=== PATIENT | female | born 1960 | race Caucasian/White ===

== ENCOUNTER 2019-11-01 15:44 | Observation (INO) | payer MEDICARE, MEDICAID, SELFPAY ==
[2019-11-01] VITALS (10 sets, daily range): BP systolic 112–134; BP diastolic 66–72; PULSE 78–110; RESP 15–22; TEMP 37.2–37.3; O2SAT 86–95; BMI 23.1
--- NOTE | ~2019-11-01 | US_ITS ---
EXAMINATION: US venous doppler [facility] DATE: 11/02/2019 11:38 INDICATION: Shortness of breath. TECHNIQUE: Grayscale ultrasound images without and with compression and Doppler ultrasound images of the bilateral lower extremity veins were obtained. COMPARISON: None. FINDINGS: The visualized portions of right common femoral vein, profunda (deep) femoral vein, femoral vein, pop liteal vein, peroneal veins, posterior tibial veins, and greater saphenous vein outflow are patent. The visualized portions of left common femoral vein, profunda femoral vein, femoral vein, popliteal v ein, peroneal veins, posterior tibial veins, and greater saphenous vein outflow are patent. IMPRESSION: 1. No deep venous thrombosis. Reviewed, dictated and finalized at location A. ARCHITECT
--- NOTE | ~2019-11-01 | XR_ITS ---
EXAMINATION: XR chest 2V EXAM DATE: 11/01/2019 16:56 INDICATION: Cough and shortness of breath. TECHNIQUE: Frontal and lateral projections of the chest obtained and reviewed. Comparison is made to prior examination from 07/07/2018. FINDINGS: There is moderate to severe chronic hyperinflation. Mild cardiomegaly. The main, central p ulmonary arteries are dilated which can indicate elevated pulmonary arterial pressure, pulmonary evan rial hypertension. No confluent consolidation, pneumothorax or pleural effusion suspected. There are bony degenerative changes. IMPRESSION: 1. Hyperinflation. 2. Cardiomegaly. Dilated pulmonary arteries. Reviewed, dictated and finalized at location A. DIR
--- NOTE | ~2019-11-01 | CT_ITS ---
EXAMINATION: CTA chest PE protocol DATE: 11/01/2019 18:30 INDICATION: Hypoxia. Shortness of breath. TECHNIQUE: Computed tomography (CT) pulmonary angiogram of the chest was performed with 100 mL Omnipa que-350 intravenous contrast. Additional 3D reconstructions utilizing coronal maximum intensity proje ction (MIP) were performed. Automated exposure control and iterative reconstruction technique were em ployed. The dose-length product was 167.62 mGy-cm. COMPARISON: None FINDINGS: Excellent contrast opacification of the pulmonary arteries. There is mild streak artifact from dense contrast in the superior vena cava and right atrium. Mild scattered respiratory motion artifact most prominent at the lung bases which decreases sensitivity in some of the smaller basilar subsegmental p ulmonary arteries. No pulmonary embolism. Mild emphysema. There is diffuse bronchial wall thickening throughout both lungs. Several scattered regions of mild tree-in-bud opacity throughout both lungs co nsistent with endobronchial spread of disease, most likely infectious bronchiolitis. Some bubbly mucu s is seen in the dependent aspect of the right mainstem bronchus. Mild basilar atelectasis at the inf erior periphery of the right middle and lower lobes. There are few scattered small bilateral calcifie d pulmonary nodules consistent with old granulomatous disease. No pulmonary edema, pleural effusion o r pneumothorax. Heart size is normal. No pericardial or pleural effusion. Thoracic aorta is normal in caliber with no dissection. Enlargement of the central pulmonary arteries consistent with pulmonary arterial hypertension. Mild bilateral hilar and subcarinal lymphadenopathy which is likely reactive. Mild thoracic dextroscoliosis with mild spondylosis. Severe lower cervical spondylosis. IMPRESSION: 1. No pulmonary embolism. 2. Diffuse bronchitis and scattered bilateral bronchiolitis. 3. Mild emphysema. Reviewed, dictated and finalized at location A. HANDISING INTERN
--- NOTE | 2019-11-01 16:33 | ED.GENADULT ---
HPI - General Adult General Chief complaint: Upper Respiratory Infection Stated complaint: trouble breathing,cough History of Present Illness HPI narrative: 59 y.o. longtime smoker has had a productive (green) cough, SOB, PND (green) for the past 2 - 3 weeks. Sore throat for the last day or two. Has been in bed almost all day the past 3 days. Temp of 100.1 today with associated chills. Is out of nebulizer solution and inhaler is empty. R.A., has not seen rivet bucker in over a year. No hx of DVT/PE, cancer, unusual leg swelling or leg pain. Related Data Home Medications Medication Instructions Recorded Confirmed hydrochlorothiazide 12.5 mg tablet 12.5 mg PO DAILY 08/30/19 11/01/19 metoprolol succinate 50 mg 50 mg PO DAILY 08/30/19 11/01/19 tablet,extended release 24 hr mirtazapine 45 mg tablet 45 mg PO HS 08/30/19 11/01/19 albuterol sulfate [ProAir HFA] 2 puff INHALATION Q4H PRN 11/01/19 11/01/19 naproxen 500 mg PO BID 11/01/19 11/01/19 prazosin 4 mg PO HS 11/01/19 11/01/19 Allergies Allergy/AdvReac Type Severity Reaction Status Date / Time No Known Allergies Allergy Verified 08/30/19 13:06 Review of Systems Constitutional: Constitutional: Reports as per HPI and Reports fatigue ENT: Reports system reviewed and no additional complaints, except as documented Cardiovascular: Cardiovascular: Denies chest pain and Denies rapid heart rate Respiratory: Respiratory: Reports no additional respiratory complaints Comments: no hemoptysis Gastrointestinal: Gastrointestinal: Denies abdominal pain, Reports diarrhea and Denies vomiting Comments: intermittent for several weeks. Genitourinary: Genitourinary: Reports hematuria (2.5 weeks ago, lasted one day. ), Denies nocturia and Denies dysuria Musculoskeletal: Comments: Denies myalgia RA pain in hands, right shoulder and hip Integumentary/Breasts: Skin/Breast: Denies rash Neurologic: Reports headache(s) (#8/10, bilateral, onset 2 days ago) Psychiatric: Comments: Denies current problems with depression or suicidal ideation. Endocrine: Endocrine: Denies polyuria Hematologic/Lymphatic: Hematologic/Lymphatic: Reports easy bruising (chronic) Comments: chronic lower extremity swelling [facility] Past Medical History Medical History (Updated 11/01/19 @ 19:03 by Cali Chavez MD) Depression Hypertension Rheumatoid arthritis Surgical History Surgical History (Updated 08/30/19 @ 13:10 by Rosa Turner) History of tubal ligation 1981 Hx of tonsillectomy Age 5 Family History Family History (Updated 08/30/19 @ 13:11 by Rosa Turner) Father Bowel cancer Mother , Age 72 Lung cancer Social History Social History (Updated 11/01/19 @ 18:34 by Cali Chavez MD) Smoking packs per day: 0.5 Smoking cigarettes per day: 1 Years smoked: 44 Smoking pack-years: 2 Smoking status: Current every day smoker Tobacco type: cigarettes Substance use: current Substance use type: marijuana Additional occupation/education comments: Disabled to due Rheumatoid Arthritis. . 1 Child. Gender identity (if verbalized by the patient): Female Exam Const: General: no acute distress Orientation/consciousness: patient oriented x3 Other: No retraction, no tripod positioning or pursed lips. HENMT: Head: normal to inspection Face and sinus: sinus tenderness maxillary (left) Mouth: Yes Normal oral and palatal mucosa present and Yes moist mucous membranes abnormal Neck: Neck: no lymphadenopathy Chest: Chest palpation & inspection: normal inspection of the chest Resp: Effort & Inspection: normal respiratory effort, able to speak in complete sentences, no audible wheezes, Actively coughing and no respiratory distress Auscultation: wheezes, diminished lung sounds (bases) and no bronchial breath sounds Cardio: Jugular venous distension: no JVD Rate: regular rate Rhythm: regular rhythm Heart sounds: S1 brett
[2019-11-01] MEDS: IPRATROPIUM 0.5 MG/ALBUTEROL SULFATE 2.5 MG AMPUL.NEB 3 ML INHALATION ×2 (16:43→23:41)
[2019-11-01 16:48] LABS: Basophils Absolute Auto 0.02 K/mm3 (0.00-0.10); Basophils Percent Auto 0.3 % (0.0-1.0); Eosinophils Absolute Auto 0.13 K/mm3 (0.02-0.50); Eosinophils Percent Auto 1.8 % (1.0-6.0); Hematocrit 36.7 % (35.0-49.0); Hemoglobin 11.3 g/dL (12.0-15.0); Immature Granulocyte Absolute 0.04 K/mm3 (0.00-0.00); Immature Granulocyte Percent A 0.6 % (0.0-0.0); Lymphocytes Absolute Auto 0.69 K/mm3 (1.10-4.50); Lymphocytes Percent Auto 9.8 % (18.0-42.0); Mean Corpuscular HGB Conc 30.8 g/dL (32.0-36.0); Mean Corpuscular Hemoglobin 28.8 pg (27.0-31.0); Mean Corpuscular Volume 93.4 fL (78.0-102.0); Mean Platelet Volume 9.5 fl (9.2-11.8); Monocytes Absolute Auto 0.42 K/mm3 (0.10-0.90); Monocytes Percent Auto 5.9 % (2.0-11.0); Neutrophils Absolute Auto 5.8 K/mm3 (1.7-7.2); Neutrophils Percent Auto 81.6 % (50.0-70.0); Platelet Count Result 232 K/mm3 (150-420); Red Blood Count 3.93 M/mm3 (4.20-5.40); Red Cell Distribution Width 14.4 % (11.6-14.4); White Blood Count 7.1 K/mm3 (4.8-10.8)
[2019-11-01 17:04] LABS: Alanine Aminotransferase 15 U/L (14-59); Albumin Level 2.7 g/dL (3.4-5.0); Alkaline Phosphatase 55 U/L (46-116); Anion Gap 9.6 mmol/L (7-16); Aspartate Amino Transferase 11 U/L (15-37); Bilirubin,Total 0.1 mg/dL (0.00-1.00); Blood Urea Nitrogen 16 mg/dL (7-18); Calcium 9.3 mg/dL (8.5-10.1); Carbon Dioxide 34 mmol/L (21-32); Chloride 104 mmol/L (98-108); Estimated CRCL calculation 56 ml/min; Estimated Glomerular Filt Rate > 60; Glucose 91 mg/dL (70-99); Osmolality Calculated 297 mOsm/kg (285-295); Potassium 4.6 mmol/L (3.5-5.1); Sodium 143 mmol/L (136-145); Total Protein 6.3 g/dL (6.4-8.2)
--- NOTE | 2019-11-01 17:06 | ECG_ITS ---
Measurements Intervals [place] Rate: 86 P: 32 RI: 132 QRS: 65 QRSD: 86 T: 51 QT: 363 QTc: 435 Interpretive Statements SINUS RHYTHM ST ELEVATION IN ANTEROLAT/INF LEADS- PROBABLY EARLY REPOLARIZATION BORDERLINE ECG Electronically Signed On 11-02-2019 8:02:04 DIRECTOR ONCOLOGY by Kj Turk D.O.
--- NOTE | 2019-11-01 17:10 | PC.NURSE ---
PT O2 SATURATION 83% ON ROOM AIR. 2L NC PLACED ON, PT NOW 90%
[2019-11-01 17:26] LABS: BNP 43.7 pg/mL (0-100)
[2019-11-01 17:31] LABS: Troponin I 0.02 ng/mL (0.00-0.056)
[2019-11-01 17:39] LABS: D Dimer 1.28 mg/L (0.19-0.50)
[2019-11-01] MEDS: LORAZEPAM 0.5 MG TABLET PO (17:52)
[2019-11-01] MEDS: predniSONE 20 MG TABLET 60 MG PO (18:33)
[2019-11-01] MEDS: SODIUM CHLORIDE 0.9% IV 1,000 ML 100 ML IV CONT (20:11)
[2019-11-01] MEDS: MIRTAZAPINE 15 MG TABLET 45 MG PO (20:51)
--- NOTE | 2019-11-01 23:00 | ADMGEN ---
This patient, Stefani Gonzalez, was admitted to 2nd Floor Room 226-2. Patient oriented to hospital policies and general routines including ID bracelet, bed and alarms, visiting hours, pain management, procedures, bathroom and other care routines, personal items, smoking policy, room service/diet, and visiting hours. Valuables list has clothing, coat, glasses, cell phone and sociology faculty member. Information on how to activate the Rapid Response Team has been discussed. Patient is encouraged to report perceived risks to care and to ask questions if they do not understand what they are told or what they should do.
[2019-11-02] VITALS (16 sets, daily range): BP systolic 117–131; BP diastolic 75–82; PULSE 74–112; RESP 16–22; TEMP 36.2–36.6; O2SAT 71–96
--- NOTE | 2019-11-02 00:20 | PC.NURSE ---
Patient falling asleep while nurse trying to educate on pursed lip breathing. Duoneb started. Patient's SpO2 during Duoneb 90% and dropped back down to 78% after neb was finished. Patient awake then and doing pursed lip breathing and SpO2 only came up to 80%. O2 increased to 4 lpm/nc and SpO2 remained @ 80% O2 changed to mask @ 4 lpm and SpO2 increased to 94% after several minutes.
[2019-11-02] MEDS: SODIUM CHLORIDE 0.9% IV 1,000 ML 100 ML IV CONT (05:52)
[2019-11-02] MEDS: IPRATROPIUM 0.5 MG/ALBUTEROL SULFATE 2.5 MG AMPUL.NEB 3 ML INHALATION ×2 (05:59→12:41)
--- NOTE | 2019-11-02 08:00 | PC.NURSE ---
No distress at rest, loose productive cough at times
--- NOTE | 2019-11-02 08:00 | PCDIET ---
NO DISTRESS AT REST, OXYGEN IS ON AT THIS TIME AT 4L NC, COUGH CONTINUES, LOOSE AND PRODUCTIVE AT TIMES
--- NOTE | 2019-11-02 09:00 | PC.NURSE ---
No distress at rest, call light inreach, oxygen on at 4L NC
--- NOTE | 2019-11-02 09:00 | PCDIET ---
NO DISTRESS AT REST, OXYGEN ON AT 4L NC AT THIS TIME, ABLE TO CONVERSE WITH NO SOB, FLUIDS INFUSING
[2019-11-02] MEDS: ACETAMINOPHEN 325 MG TABLET 650 MG PO (09:10)
[2019-11-02] MEDS: METOPROLOL SUCCINATE EXT REL 50 MG TABCR PO (09:13)
[2019-11-02] MEDS: predniSONE 20 MG TABLET 60 MG PO (09:14)
[2019-11-02] MEDS: NAPROXEN 250 MG TABLET 500 MG PO (09:14)
[2019-11-02] MEDS: hydroCHLOROthiazide 12.5 MG CAPSULE PO (09:17)
[2019-11-02] MEDS: ENOXAPARIN 40 MG/0.4 ML SYRINGE SUB-Q (09:18)
[2019-11-02 09:43] LABS: Hematocrit 34.9 % (35.0-49.0); Hemoglobin 10.7 g/dL (12.0-15.0); Mean Corpuscular HGB Conc 30.7 g/dL (32.0-36.0); Mean Corpuscular Hemoglobin 28.9 pg (27.0-31.0); Mean Corpuscular Volume 94.3 fL (78.0-102.0); Mean Platelet Volume 9.8 fl (9.2-11.8); Platelet Count Result 238 K/mm3 (150-420); Red Cell Distribution Width 14.6 % (11.6-14.4); White Blood Count 6.7 K/mm3 (4.8-10.8)
--- NOTE | 2019-11-02 10:00 | PCDIET ---
RESTING IN BED, USING BSC WITHOUT ASSISTANCE, DENIES PAIN AT THIS TIME, NO SOB AT REST, COUGH AT TIMES PRODUCTIVE AT TIMES
[2019-11-02 10:07] LABS: D Dimer 1.03 mg/L (0.19-0.50)
[2019-11-02 10:15] LABS: Anion Gap 8.6 mmol/L (7-16); Blood Urea Nitrogen 15 mg/dL (7-18); Calcium 9.6 mg/dL (8.5-10.1); Carbon Dioxide 34 mmol/L (21-32); Chloride 105 mmol/L (98-108); Estimated CRCL calculation 55 ml/min; Estimated Glomerular Filt Rate > 60; Glucose 131 mg/dL (70-99); Osmolality Calculated 298 mOsm/kg (285-295); Potassium 4.6 mmol/L (3.5-5.1); Sodium 143 mmol/L (136-145); Thyroid Stimulating Hormone 0.24 uIU/mL (0.36-3.74)
[2019-11-02 10:17] LABS: Phosphorus 3.5 mg/dL (2.6-4.7)
[2019-11-02 10:18] LABS: Magnesium 1.6 mg/dL (1.8-2.4); Troponin I < 0.02 ng/mL (0.00-0.056)
[2019-11-02 10:34] LABS: Lactic Acid 1.3 mmol/L (0.4-2.0)
[2019-11-02] MEDS: SALMET XINAFT/FLUTIC PROPIN 250 MCG/50 MCG INH CAP 1 PUFF INHALATION (10:40)
[2019-11-02] MEDS: methylPREDNISolone SOD SUCC 40 MG VIAL 20 MG IV PUSH (10:41)
--- NOTE | 2019-11-02 10:48 | PM.IMHP ---
H&P: HPI History of Present Illness Chief complaint: trouble breathing,cough Narrative: Stefani Gonzalez is a 59 year old female admitted yesterday for SOB, COPD exacerbation with Asthma, Infective Bronchitis, Emphysema, Lymphadenopathy, and history of fevers at home. She is a longtime smoker with a productive (green sputum) cough for the past 2 - 3 weeks. Sore throat for the last day or two. Has been in bed almost all day the past 3 days. Temp of 100.1 today with associated chills. Stefani is feeling better today, but still not at her baseline and not feeling well enough to go home this morning, wants to discuss this afternoon. Started on Spiriva daily, Advair daily, DuoNeb treatments Q6 hrs, and ProAir/Ventalin Rescue inhaler PRN. Received 80mg Prednisone today, 60mg planned for tomorrow. She is currently on and off 2-4 L O2 NC, depending on her activity level. She was not using O2 at home and does not have any O2 supply at home. She stated that she was having fevers at home and at her ED admission, but no fevers at documented in vitals. WBCs are wnl. CT scan is showing Infective bilateral Bronchitis, emphysema, and reactive lymphadenopathy. Ordered Influenza A and B swab test. With her SOB, Troponins checked and found WNL x 2, and will repeat EKG today. EKG yesterday showed some mild to moderate ST elevation in Leads II, III. Denies chest pain, jaw pain, shoulder pain, arm/hand tingling or numbness. Ordered Home O2 study for this afternoon. Required 3 L O2 NC with ambulation, activity, and required 1 L O2 NC while at rest. Will send her home on O2 if needed and with a Nebulizer to continue her Neb treatments. She will be discharged with COPD that is at a chronic stable state. Review of Systems Review of Systems: All systems reviewed & are unremarkable except as noted in HPI and below Constitutional: Constitutional: Reports as per HPI, Reports body ache(s), Reports chills, Reports fatigue, Reports headache(s) (#8/10, bilateral, onset 2 days ago), Reports lethargy and Reports weakness Eyes: Eyes: Reports as per HPI ENT: Reports system reviewed and no additional complaints, except as documented, Reports as per HPI, Reports Normal hearing present, Reports headache(s) (#8/10, bilateral, onset 2 days ago) and Reports nasal congestion Cardiovascular: Cardiovascular: Reports as per HPI, Denies chest pain, Denies rapid heart rate, Denies pedal edema, Reports leg edema, Denies lightheadedness and Denies palpitations Respiratory: Respiratory: Reports as per HPI, Reports chest congestion, Reports cough, Denies hemoptysis, Reports dyspnea, Reports dyspnea on exertion and Reports wheezing Gastrointestinal: Gastrointestinal: Reports as per HPI, Denies abdominal pain, Denies melena, Denies hematochezia, Denies constipation, Denies heartburn, Reports diarrhea, Denies nausea, Denies vomiting and Denies hematemesis Genitourinary: Genitourinary: Reports as per HPI, Denies hematuria (2.5 weeks ago, lasted one day. ), Denies nocturia, Denies dysuria and Denies urinary incontinence Musculoskeletal: Musculoskeletal: Denies no additional musculoskeletal complaints, Reports as per HPI and Reports stiffness Integumentary/Breasts: Skin/Breast: Reports system reviewed and no additional complaints, except as docu, Reports as per HPI, Reports dry skin and Denies rash Neurologic: Reports as per HPI, Denies confusion, Denies vertigo, Reports headache(s) (#8/10, bilateral, onset 2 days ago) and Denies numbness Psychiatric: Psychiatric: Reports as per HPI, Reports anxiety (high level of anxiety, uses nictoine daily with cigarette smoking. ), Denies confusion, Reports depression, Denies homicidal ideation and Denies suicidal ideation Comments: HYPERACTIVE, hyperemotional Endocrine: Endocrine: Reports as per HPI, Reports excessive sweating, Reports fatigue and Denies polyuria Hematologic/Lymphatic: Hematologic/Lymphatic: Reports easy bruising (chronic) [facility]
--- NOTE | 2019-11-02 10:53 | ECG_ITS ---
Measurements Intervals [place] Rate: P: LA: QRS: QRSD: T: QT: QTc: Interpretive Statements SINUS RHYTHM DELAYED PRECORDIAL R/S TRANSITION BORDERLINE ST-T WAVE ABNORMALITY- ANTERIOR LEADS BORDERLINE ECG Electronically Signed On 11-02-2019 14:14:30 HOT BOX SPOTTER by Kj Turk D.O.
--- NOTE | 2019-11-02 11:00 | PC.NURSE ---
Resting with HOB elevated, no distress noted, denies needs, oxygen on at 4L NC, wants to take a walk, advised when venous dopplar is completed we can walk and check oxygen level with activity
[2019-11-02] MEDS: MAGNESIUM SULF 4 GM/WATER100ML 4 GM/100 ML BAG IVPB (11:09)
--- NOTE | 2019-11-02 12:00 | PC.NURSE ---
eating lunch, no distress, oxygen on 4L NC
--- NOTE | 2019-11-02 13:21 | PC.NURSE ---
Up in anna with SBA, walked around outside of nurses station, no distress noted, denies sob, oxygen off during walk and noted oxygen level 88-90% on room air
--- NOTE | 2019-11-02 14:00 | PC.NURSE ---
On room air, no distress noted,
--- NOTE | 2019-11-02 14:02 | PCDIET ---
resting in bed on room air, denies sob at this time
[2019-11-02 14:14] LABS: Influenza Control Valid (Valid)
--- NOTE | 2019-11-02 15:19 | HOMEO2EVAL ---
Home Oxygen Evaluation RC: Home Oxygen (O2) Evaluation Start: 11/02/19 13:50 Freq: ONCE Status: Active Protocol: RPE Activity Type Activity Date Activity User E-Sign Co-Sign Detail Recorded Client Recorded Date Recorded By Document 11/02/19 14:30 TANJA [id number] 11/02/19 15:19 TANJA Document 11/02/19 14:33 TANJA [id number] 11/02/19 15:19 TANJA Document 11/02/19 14:35 TANJA [id number] 11/02/19 15:19 TANJA Document 11/02/19 14:40 TANJA [id number] 11/02/19 15:19 TANJA Document 11/02/19 14:45 TANJA [id number] 11/02/19 15:19 TANJA 11/02/19 11/02/19 11/02/19 14:30 14:33 14:35 Home O2 Evaluation Test Phase Resting Resting Resting Oxygen Delivery Room Air Nasal Cannula Nasal Cannula Oxygen Flow Rate (L/min) 1 2 Pulse Oximetry (90-100 %) 87 L 89 L 93 Pulse Rate (60-100 beats/min) 80 80 78 Activity Tolerance Rating of Perceived Dyspnea (PD) +2 Mild, Some Difficulty, Noticeable to the Observer Rate of Perceived Exertion (PE) 6 Very, very light Ambulation Distance (feet) Home Oxygen Evaluation Comments Sp02 at rest on Resting at 1 SP02 at rest on room air = 87% lpm = SP02 89%. 2 lpm = 93%. Will increase will begin walk to 2 lpm at on 2 lpm. rest. Treatment Charges O2 Evaluation 11/02/19 11/02/19 14:40 14:45 Home O2 Evaluation Test Phase Exercise Exercise Oxygen Delivery Nasal Cannula Nasal Cannula Oxygen Flow Rate (L/min) 2 3 Pulse Oximetry (90-100 %) 89 L 93 Pulse Rate (60-100 beats/min) 85 85 Activity Tolerance Good Excellent Rating of Perceived Dyspnea (PD) +2 Mild, Some +2 Mild, Some Difficulty, Difficulty, Noticeable to Noticeable to the Observer the Observer Rate of Perceived Exertion (PE) 9 Very light 9 Very light Ambulation Distance (feet) 65 400 Home Oxygen Evaluation Comments SP02 on 2 lpm Sp02 maintained with exercise at 93% during dropped to 89% exerise on 3 after walking lpm oxygen. 65 feet. Will increase oxygen to 3 lpm. Treatment Charges
--- NOTE | 2019-11-02 15:22 | HOMEO2EVAL ---
Home Oxygen Evaluation RC: Home Oxygen (O2) Evaluation Start: 11/02/19 13:50 Freq: ONCE Status: Active Protocol: RPE Activity Type Activity Date Activity User E-Sign Co-Sign Detail Recorded Client Recorded Date Recorded By Document 11/02/19 14:30 TANJA [id number] 11/02/19 15:19 TANJA Document 11/02/19 14:33 TANJA [id number] 11/02/19 15:19 TANJA Document 11/02/19 14:35 TANJA [id number] 11/02/19 15:19 TANJA Document 11/02/19 14:40 TANJA [id number] 11/02/19 15:19 TANJA Document 11/02/19 14:45 TANJA [id number] 11/02/19 15:19 TANJA 11/02/19 11/02/19 11/02/19 14:30 14:33 14:35 Home O2 Evaluation Test Phase Resting Resting Resting Oxygen Delivery Room Air Nasal Cannula Nasal Cannula Oxygen Flow Rate (L/min) 1 2 Pulse Oximetry (90-100 %) 87 L 89 L 93 Pulse Rate (60-100 beats/min) 80 80 78 Activity Tolerance Rating of Perceived Dyspnea (PD) +2 Mild, Some Difficulty, Noticeable to the Observer Rate of Perceived Exertion (PE) 6 Very, very light Ambulation Distance (feet) Home Oxygen Evaluation Comments Sp02 at rest on Resting at 1 SP02 at rest on room air = 87% lpm = SP02 89%. 2 lpm = 93%. Will increase will begin walk to 2 lpm at on 2 lpm. rest. Treatment Charges O2 Evaluation 11/02/19 11/02/19 14:40 14:45 Home O2 Evaluation Test Phase Exercise Exercise Oxygen Delivery Nasal Cannula Nasal Cannula Oxygen Flow Rate (L/min) 2 3 Pulse Oximetry (90-100 %) 89 L 93 Pulse Rate (60-100 beats/min) 85 85 Activity Tolerance Good Excellent Rating of Perceived Dyspnea (PD) +2 Mild, Some +2 Mild, Some Difficulty, Difficulty, Noticeable to Noticeable to the Observer the Observer Rate of Perceived Exertion (PE) 9 Very light 9 Very light Ambulation Distance (feet) 65 400 Home Oxygen Evaluation Comments SP02 on 2 lpm Sp02 maintained with exercise at 93% during dropped to 89% exerise on 3 after walking lpm oxygen. 65 feet. Will increase oxygen to 3 lpm. Treatment Charges
[2019-11-02] MEDS: NICOTINE (*PBKC) 14 MG PATCH 1 PATCH TRANSDERM (15:35)
--- NOTE | 2019-11-02 16:02 | PC.NURSE ---
pt found smoking in bathroom, pt apologizes and states i only took 2 drags i swear then i flushed it , pt reminded of dangers of smoking in the room with 02 and also of the fact that we are a smoke-free campus
--- NOTE | 2019-11-02 16:50 | PM.DS ---
DS: Diagnosis Admitting Diagnosis Admitting Diagnosis: Secondary pulmonary arterial hypertension Discharge Diagnosis (1) Bronchiolitis, acute: Onset Date: ~11/01/19 Code(s): J21.9 - Acute bronchiolitis, unspecified Status: Acute Assessment and Plan: Received IV solumedrol and discharged on oral prednisone taper. Started on Q4-6 hour Duo Neb treatments and continued at discharge. Ordered Home O2 and home Nebulizer machine. She is to continue using her Incentive Spirometer at home. She is to Follow up with PCP and Socket Puller in 3-14 days. (2) Pulmonary artery hypertension: Onset Date: ~11/01/19 Code(s): I27.21 - Secondary pulmonary arterial hypertension Status: Acute Assessment and Plan: Will need to see PCP regarding this finding on her CT scan. ORdered her an outpatient ECHO to get scheduled and completed and discussed with her PCP and/or news operations manager. Continue to control BP and HR. Use inhalers and nebulizers to reduce lung/heart work load. Stop smoking. (3) Emphysema lung: Onset Date: ~11/01/19 Code(s): J43.9 - Emphysema, unspecified Status: Acute Assessment and Plan: Will need to see PCP and Socket Puller regarding this finding on her CT scan. Needs to get PFTs on outpatient basis and discuss them with Pulonologist. Avoid triggers: pollen, dust, smoke, perfumes. Use inhalers and nebulizers/ bronchodilators. Stop smoking. (4) COPD with acute exacerbation: Onset Date: ~11/01/19 Code(s): J44.1 - Chronic obstructive pulmonary disease with (acute) exacerbation Status: Acute Assessment and Plan: Will need to see PCP and Socket Puller regarding this finding on her CT scan. Needs to get PFTs on outpatient basis and discuss them with Pulonologist. Avoid triggers: pollen, dust, smoke, perfumes. Use inhalers and nebulizers/ bronchodilators. Stop smoking. Complete her Steroid taper. DS: Summary Time Spent with Patient Time attestation: Total time spent providing and/or coordinating discharge services:>60 minutes Exam Const: General: comfortable and no acute distress; No in distress or confusion Orientation/consciousness: patient oriented x3 and No confusion Other: No retraction, no tripod positioning or pursed lips. HENMT: Head: normal to inspection General nose exam: no epistaxis Face and sinus: sinus tenderness maxillary (left) Mouth: Yes Normal oral and palatal mucosa present, Yes moist mucous membranes abnormal, Yes dry mucous membranes and Yes Abnormal oral and palatal mucosa present Eyes: General: appearance normal, both eyes and all related structures Pupils: Equal, round and reactive pupils present Neck: Neck: no lymphadenopathy and No no JVD Lymphatic: lymphadenopathy Chest: Chest palpation & inspection: normal inspection of the chest Resp: Effort & Inspection: normal respiratory effort, able to speak in complete sentences, no audible wheezes, Actively coughing, labored (only with exertion/ activity), no nasal flaring, no respiratory distress, uses accessory muscles (with exertion/activity) and symmetric chest movement Auscultation: clear to auscultation bilaterally, no crackles, no rales, no rhonchi, no wheezes, diminished lung sounds (bases) and no bronchial breath sounds Cardio: Jugular venous distension: no JVD Rate: regular rate, not bradycardic and not tachycardic Rhythm: regular rhythm and regular rhythm Heart sounds: S1 normal heart sound present, S2 normal heart sound present, no gallops and no murmurs GI: Inspection: normal to inspection and non-distended Auscultation: normal bowel sounds : General: Yes no CVA tenderness Back/Spine/Pelvis: Back: no CVA tenderness Skin: General skin exam: normal color, no rashes or lesions noted and no erythema Rashes: no rashes noted Wounds: no wounds Neuro: General: patient oriented x3, gait normal and No confusion Cranial nerves: Yes Equal,
--- NOTE | 2019-11-04 12:16 | PC.NURSE ---
Discharge call Back [phone] Patient stated I have a friend whos been taking care of me. Going to see the dr on Thursday. I understood all the discharge instructions in writing and talked about. I have the folder I was sent home with and I looked at it a couple times since I've been home.
[2019-11-05 10:53] LABS: Vitamin D 25 Hydroxy 30 ng/mL (30-100)
== END 2019-11-02 17:25 | disposition home or self-care (01) ==
LOC: CHSED 19:06 → CHS2ND 19:24
PROVIDERS: Nurse Practitioner; Admitting Provider Family Medicine; Emergency Provider Family Medicine; Visit Provider Family Medicine
DX: J20.9 Acute bronchitis, unspecified (principal); J21.9 Acute bronchiolitis, unspecified; J43.9 Emphysema, unspecified; I27.20 Pulmonary hypertension, unspecified; M06.9 Rheumatoid arthritis, unspecified; R59.0 Localized enlarged lymph nodes; F17.210 Nicotine dependence, cigarettes, uncomplicated; R06.02 Shortness of breath; F32.9 Major depressive disorder, single episode, unspecified; R61 Generalized hyperhidrosis; Z79.899 Other long term (current) drug therapy
CPT/HCPCS: 36415; 71046; 71275; 80048; 80053; 82306; 83605; 83735; 83880; 84100; 84443; 84484; 85025; 85027; 85380; 87040; 87070; 87077; 87205; 87804; 93005; 93970; 94618; 94640; 96361; 96365; 96366; 96367; 96372; 96375; 99284; 99285; A9270; G0378; J0696; J1650; J2920; J3475; J7030; J7512; Q9965

== ENCOUNTER 2020-02-13 14:48 | Outpatient (CLI) | payer MEDICARE, MEDICAID, SELFPAY ==
--- NOTE | ~2020-02-13 | MR_ITS ---
EXAMINATION: MR cervical spine wo con EXAM DATE: 02/13/2020 15:11 INDICATION: Neck pain. TECHNIQUE: Multi-sequential, multiplanar MR images of the cervical spine were obtained without contra st. Axial T2, axial T2 MERGE sequence. Sagittal T1, T2, T2 fat saturation images also obtained. Th ere is no prior study for comparison. FINDINGS: Moderate to severe disc disease at C4-5 and 5-6, moderate at C6-7. Spinal cord is being co mpressed at these 3 levels, but there is no cord edema, no acute cord compression. The vertebral bodi es are aligned in the AP dimension. Cervicomedullary junction is normal in appearance. There are no s uspicious marrow signal abnormalities. Paraspinal soft tissue is unremarkable. There is an 8 mm nodu le in the thyroid isthmus. Level by level evaluation: C2-C3: Disc does not extend beyond the endplate margin. Uncovertebral joint arthropathy: Mild bilateral. Facet joint arthropathy: Moderate left, mild to moderate right. Neural foraminal stenosis: Mild to moderate left. Central canal stenosis: No stenosis. C3-C4: Disc does not extend beyond the endplate margin. Uncovertebral joint arthropathy: Mild bilateral. Facet joint arthropathy: Moderate left, mild to moderate right. Neural foraminal stenosis: Mild to moderate left, no right. Central canal stenosis: No stenosis. C4-C5: There is a mild to moderate diffuse disc bulge. Uncovertebral joint arthropathy: Moderate. Facet joint arthropathy: Mild to moderate bilateral. Neural foraminal stenosis: Moderate to severe left, moderate right. Central canal stenosis: Mild to moderate . Central canal measures 6 mm in mid sagittal AP diameter . C5-C6: There is a moderate diffuse disc bulge. Uncovertebral joint arthropathy: Moderate. Facet joint arthropathy: Mild to moderate. Neural foraminal stenosis: Moderate bilateral, left greater than right. Central canal stenosis: Mild to moderate . Central canal measures 6 mm in mid sagittal AP diameter . C6-C7: There is a moderate to large diffuse disc bulge. Also some migration both cephalad and inferio r to the disc level. Uncovertebral joint arthropathy: Moderate. Facet joint arthropathy: Mild. Neural foraminal stenosis: Moderate left, mild to moderate right. Central canal stenosis: Moderate . Central canal measures 5 mm in mid sagittal AP diameter . C7-T1: Disc does not extend beyond the endplate margin. Uncovertebral joint arthropathy: Mild left. Facet joint arthropathy: Mild to moderate bilateral. Neural foraminal stenosis: Mild right. Central canal stenosis: No stenosis. IMPRESSION: 1. Chronic lower cervical cord compressions, no edema. 2. Moderate to severe cervical spondylosis as detailed above. Reviewed, dictated and finalized at location A.
== END 2020-02-13 14:49 | disposition home or self-care (01) ==
PROVIDERS: PCP Family Medicine; Visit Provider Internal Medicine Rheumatology
DX: M54.2 Cervicalgia (principal); Z78.0 Asymptomatic menopausal state; M47.812 Spondylosis without myelopathy or radiculopathy, cervical region; G95.20 Unspecified cord compression
CPT/HCPCS: 72141

== ENCOUNTER 2020-02-15 13:11 | Outpatient (CLI) | payer MEDICARE, MEDICAID, SELFPAY ==
--- NOTE | ~2020-02-15 | DEXA_ITS ---
Bone Density Report Name: Stefani Gonzalez Age: 59 Sex: Female Ethnicity: White Date of : 1960 Indication: postmenopausal; height loss; asthma or emphysema; rheumatoid arthritis; Referring Provider: YAO SAUNDERS Study: Bone densitometry was performed. Exam Date: February 15, 2020 Accession number: [id number] Bone Density: Region BMD T-score Z-score Classification AP Spine (L1, L3, L4) 0.757 -2.7 -1.3 Osteoporosis Femoral Neck (Left) 0.554 -2.7 -1.4 Osteoporosis Total Hip (Left) 0.691 -2.1 -1.1 Osteopenia Total Hip Bilateral Avg 0.689 -2.1 -1.2 Osteopenia Femoral Neck (Right) 0.529 -2.9 -1.6 Osteoporosis Total Hip (Right) 0.686 -2.1 -1.2 Osteopenia World Health Organization criteria for BMD impression classify patients as: Normal (T-score at or above -1.0), Osteopenia (T-score between -1.0 and -2.5), or Osteoporosis (T-score at or below -2.5). 10-year Fracture Risk: FRAX not reported because: Some T-score for Spine Total or Hip Total or Femoral Neck at or below -2.5 Clinical Information Provided by Patient: Has rheumatoid arthritis Has the following medical conditions: Asthma or Emphysema Patient maximum height was 66 Menopause Age: 48 No regular weight bearing exercise Drinks caffeinated beverages Onset of menses at age 15 Number of children 1 Impression: The patient has osteoporosis, based on the Right Femoral Neck T-score. Discussion: INCREASED RISK OF FRACTURE. BONE DENSITY IS UNDESIRABLY LOW AT ONE OR MORE SKELETAL SITES, CONSISTENT WITH POSTMENOPAUSAL OSTEOPOROSIS. This patient's lowest T-score meets the World Health Organization's (WHO) criteria for osteoporosis at one or more sites (T-score -2.5 or below). In untreated patients, the risk of osteoporotic fracture increases approximately two-fold for each 1.0 SD decrease in T-score. Low bone density is not the only risk factor for fracture; also consider factors such as patient's age, frailty or poor health, risk of falling, risk of injury, previous osteoporotic fracture, family history of osteoporosis, cigarette smoking, low body weight, etc. Not everyone with low bone mineral density has osteoporosis; osteomalacia and other metabolic bone disorders should also be considered. Patients who have osteoporosis should be evaluated for specific diseases and conditions (secondary causes) that may cause or contribute to bone loss. The [place] Association [employer] Clinical Endocrinologists (AACE) and National Osteoporosis Foundation (NOF) recommend pharmacologic intervention for all postmenopausal women whose T-score is in this range. The patient should follow a healthful lifestyle (good nutrition with adequate calcium and vitamin D, and appropriate weight-bearing exercise). Follow-Up: Consider a repeat BMD and Vertebral Fracture Assessment (VFA) exam in 2 years or lennie
== END 2020-02-15 13:12 | disposition home or self-care (01) ==
PROVIDERS: PCP Family Medicine; Visit Provider Internal Medicine Rheumatology
DX: Z78.0 Asymptomatic menopausal state (principal); M85.89 Other specified disorders of bone density and structure, multiple sites; M81.0 Age-related osteoporosis without current pathological fracture
CPT/HCPCS: 77080

== ENCOUNTER 2020-04-01 10:53 | Emergency (ER) | payer MEDICARE, MEDICAID, SELFPAY ==
[2020-04-01 11:10] VITALS: BP 197/115; PULSE 92; RESP 20; TEMP 36.8; O2SAT 93
[2020-04-01 11:15] LABS: Add Urine Microscopic? YES; Appearance Urine Clear (Clear); Bilirubin Urine Negative (Negative); Blood Urine Negative (Negative); Color Urine Yellow (Yellow); Glucose Urine UA Negative (Negative); Ketones Urine Negative (Negative); Leukocyte Esterase Ur Negative LEU/UL (Negative); Nitrate Urine Negative (Negative); Protein Urine Trace (Negative); Urobilinogen Urine 0.2 mg/dL (0.2-1.0); pH Urine 7.5 (5.0-8.0)
[2020-04-01 11:20] LABS: Bacteria Urine None seen /hpf; Mucus Urine None seen /lpf; RBC Urine None seen /hpf (0-2); Squamous Epithelial Cell Urine Few /hpf (Few); WBC Urine None seen /hpf (0-3)
--- NOTE | 2020-04-01 11:39 | ED.BACK ---
HPI - Back Pain/Injury General Chief Complaint: Urogenital-Female Stated Complaint: Kidney infection Source: patient Mode of arrival: ambulatory Limitations: no limitations History of Present Illness HPI Narrative: Patient has had right sided back pain for the last 4 days. No associated fever , chills, vomiting or urinary symptoms. MD elicited complaint: back pain and back injury (none) Pertinent past history: arthritis (rheumatoid arthritis) Onset (ago): day(s) (4) Timing: constant Severity: moderate Similar Symptoms Previously: Yes Quality: aching Location: lumbar spine Radiation: none Exacerbating factors: movement Relieving factors: none Associated symptoms: denies other symptoms Related Data Home Medications Medication Instructions Recorded Confirmed hydrochlorothiazide 12.5 mg tablet 12.5 mg PO DAILY 08/30/19 04/01/20 metoprolol succinate 50 mg 50 mg PO DAILY 08/30/19 04/01/20 tablet,extended release 24 hr mirtazapine 45 mg tablet 45 mg PO HS 08/30/19 04/01/20 Allergies Allergy/AdvReac Type Severity Reaction Status Date / Time No Known Allergies Allergy Verified 01/31/20 10:54 Review of Systems Review of Systems: All systems reviewed & are unremarkable except as noted in HPI and below PMFSH Past Medical History Medical History COPD (chronic obstructive pulmonary disease) Depression Hypertension Pulmonary artery hypertension (~11/01/19) Rheumatoid arthritis Tobacco abuse Surgical History Surgical History History of tubal ligation 1982 Hx of tonsillectomy Age 5 Family History Family History Father Bowel cancer Mother , Age 72 Lung cancer Social History Social History Smoking packs per day: 0.5 Smoking cigarettes per day: 10.0 Years smoked: 44 Smoking pack-years: 22.00 Smoking status: Current every day smoker Tobacco type: cigarettes Second hand tobacco smoke exposure: Yes Alcohol intake: former Substance use: never Substance use type: does not use Additional occupation/education comments: Disabled to due Rheumatoid Arthritis. . 1 Child. Gender identity (if verbalized by the patient): Female Spiritual care concerns: No Agree to blood products: Yes Exam Const: General: no acute distress and alert Orientation/consciousness: patient oriented x3 HENMT: Head: normal to inspection Resp: Effort & Inspection: normal respiratory effort Auscultation: clear to auscultation bilaterally Cardio: Rate: regular rate Rhythm: regular rhythm GI: GI Palp: Yes Soft to palpation and No Tenderness to palpation present (GI) Back/Spine/Pelvis: Thoracic/Lumbar Spine: thoracic and lumbar spine normal to inspection, straight leg raise negative bilaterally and paraspinal muscle tenderness (right side) Extrem: General: normal to inspection Psych: Mental Status: mental status grossly normal Affect: Anxious affect present Course Course Emergency Course: Patient is aware of normal urinalysis. Will give her analgesia with toradol Vital Signs Vital signs: Vital Signs Temperature 36.8 C 04/01/20 11:10 Pulse Rate 92 04/01/20 11:10 Respiratory Rate 20 04/01/20 11:10 Blood Pressure 197/115 H 04/01/20 11:10 Pulse Oximetry 93 04/01/20 11:10 Temperature 36.8 C 04/01/20 11:10 Pulse Rate 92 04/01/20 11:10 Respiratory Rate 20 04/01/20 11:10 Blood Pressure 197/115 H 04/01/20 11:10 Pulse Oximetry 93 04/01/20 11:10 MDM - Back Pain/Injury Differential Diagnosis Differential diagnosis: Likely lumbar radiculopathy, strain of lumbar region and pyelonephritis Medical Records Attestation: I reviewed the patient's medical records. Lab Data Attestation: I reviewed the patient's lab results. Labs: Lab Results
[2020-04-01] MEDS: KETOROLAC (*BKC) 60 MG/2 ML VIAL IM (11:58)
== END 2020-04-01 12:02 | disposition home or self-care (01) ==
PROVIDERS: Emergency Provider Emergency Medicine; PCP Family Medicine
DX: M54.9 Dorsalgia, unspecified (principal); F17.200 Nicotine dependence, unspecified, uncomplicated; J44.9 Chronic obstructive pulmonary disease, unspecified; I10 Essential (primary) hypertension
CPT/HCPCS: 81001; 96372; 99283; J1885

== ENCOUNTER 2020-04-11 12:20 | Outpatient (CLI) | payer MEDICARE, MEDICAID, SELFPAY ==
--- NOTE | ~2020-04-11 | XR_ITS ---
XR lumbar spine 2-3V DATE: 04/11/2020 13:54 INDICATION: Low back pain, shooting down right leg TECHNIQUE: AP, lateral, coned lateral lumbosacral views COMPARISON: None FINDINGS: Diffuse osteopenia. There is moderate rotatory levoscoliosis of the lower thoracic and lumbar spine. There is degenerative disc disease involving primarily the mid lumbar area, most prominent at L2-3. No fracture or bone destruction or spondylolisthesis. The sacroiliac joints are intact. IMPRESSION: Moderate rotatory levoscoliosis Multilevel degenerative disc disease Reviewed, dictated and finalized at location A.
== END 2020-04-11 12:21 | disposition home or self-care (01) ==
LOC: CHSIMG 12:23
PROVIDERS: PCP Family Medicine; Visit Provider Family Medicine
DX: M54.5 Low back pain (principal)
CPT/HCPCS: 72100

== ENCOUNTER 2020-04-16 14:49 | Outpatient (RCR) | payer MEDICARE, MEDICAID, SELFPAY ==
--- NOTE | 2020-04-25 14:24 | PCPTNOTE ---
04/25/2020- pt no showed for appointment on both 04/23/2020 and today 04/25/2020. There is no answer on phone, and no option to leave a vm. .
--- NOTE | 2020-06-12 16:28 | PCPTNOTE ---
06/12/20 - patient has not been to therapy in several months. as of this date, patient will be DC'd from skilled PT services, and all progress towards goals will be taken from patients most recent evaluation/note. CHERRY
== END 2020-04-16 15:00 | disposition home or self-care (01) ==
LOC: CHSPT 14:49
PROVIDERS: PCP Family Medicine; Visit Provider Family Medicine
DX: M54.5 Low back pain (principal)
CPT/HCPCS: 97014; 97110; 97161; G0283

== ENCOUNTER 2020-06-23 01:15 | Outpatient (CLI) | payer MEDICARE, MEDICAID, SELFPAY ==
[2020-06-23 18:13] LABS: SARS-CoV-2 RNA PCR Negative
== END 2020-06-23 01:16 | disposition home or self-care (01) ==
LOC: ANHCOVIDDT 01:16
PROVIDERS: PCP Family Medicine; Visit Provider Surgery
DX: Z01.812 Encounter for preprocedural laboratory examination (principal); Z20.828 Contact with and (suspected) exposure to other viral communicable diseases
CPT/HCPCS: 87635; C9803; U0003

== ENCOUNTER 2020-06-26 01:20 | Day surgery (SDC) | payer MEDICARE, MEDICAID, SELFPAY ==
[2020-06-14 09:14] VITALS: BMI 22.6
[2020-06-26] MEDS: LACTATED RINGERS 1,000 ML 150 ML IV CONT (09:33)
[2020-06-26 09:37] VITALS: BP 135/65; PULSE 80; RESP 20; TEMP 36.6; O2SAT 90
--- NOTE | 2020-06-26 09:46 | WPDANESEPPF ---
Anes - Initial Pre Proc Eval Procedure: Operation Date: 06/26/20 10:00 Proposed Procedures p Screening Colonoscopy - Faustino Worrell DO Date/Time: 06/26/20 09:46 Surgeon: Faustino Worrell DO Pre Op Diagnosis: Neoplasm Screening Patient Data Age: 60 Gender: F Height: 1.63 m Weight: 22.6 kg Last Vital Signs Temp 36.6 C 06/26/20 09:37 Pulse 80 06/26/20 09:37 Resp 20 06/26/20 09:37 BP 135/65 06/26/20 09:37 Pulse Ox 90 06/26/20 09:37 Allergies Allergy/AdvReac Type Severity Reaction Status Date / Time No Known Allergies Allergy Verified 06/26/20 09:35 Home Medications Medication Instructions Recorded Confirmed Type hydrochlorothiazide 12.5 mg tablet 12.5 mg PO DAILY 08/30/19 06/14/20 History metoprolol succinate 50 mg 50 mg PO DAILY 08/30/19 06/14/20 History tablet,extended release 24 hr mirtazapine 45 mg tablet 45 mg PO HS #90 tablet 04/17/20 06/14/20 Rx albuterol sulfate 90 mcg/actuation See Rx Instructions .ROUTE 05/25/20 06/14/20 Rx aerosol inhaler .COMPLEX #8.5 inhaler tiotropium bromide 18 mcg capsule 1 cap INHALATION QAM 90 Days #90 05/25/20 06/14/20 Rx with inhalation device inhalation inhalational spacing device #1 each 05/28/20 Rx duloxetine 30 mg capsule,delayed 30 mg PO BID #180 cap 05/30/20 06/14/20 Rx release varenicline 0.5 mg (11)-1 mg (42) See Rx Instructions PO PER PKG DIR 05/30/20 06/14/20 Rx tablets in a dose pack #53 each trazodone 100 mg tablet 200 mg PO .Bedtime #60 tablet 06/07/20 06/14/20 Rx folic acid 1 mg PO DAILY 06/14/20 06/14/20 History ipratropium-albuterol 3 ml INHALATION Q4-6H PRN 06/14/20 06/14/20 History methotrexate sodium 20 mg PO WEEKLY 06/14/20 06/14/20 History Patient hx anesthesia problems: none Family hx anesthesia problems: none PMFSH Social History Social History Smoking packs per day: 0.5 Smoking cigarettes per day: 10.0 Years smoked: 44 Smoking pack-years: 22.00 Smoking status: Current every day smoker Tobacco type: cigarettes Second hand tobacco smoke exposure: Yes Alcohol intake: former Substance use: never Substance use type: does not use Additional occupation/education comments: Disabled to due Rheumatoid Arthritis. . 1 Child. Gender identity (if verbalized by the patient): Female Spiritual care concerns: No Agree to blood products: Yes Anes - Eval Final PreProcedure Day of Procedure 06/26/20 09:46 Patient weight: normal Heart: regular rate and rhythm Lungs: clear to auscultation and normal air movement Airway: Mallampati scale class II Neurological: alert and oriented Last oral intake: >/= 8 hours ASA classification: III Emergent: no Anesthetic plan: proceed Anesthesia type and monitoring: general GIVS Informed Consent: The patient's anesthetic plan and its attendant risks and benefits were discussed with the patient/family/POA. Questions were solicited and answers provided to the satisfaction of the patient/family/POA.
--- NOTE | 2020-06-26 10:05 | PM.IMHP ---
H&P: HPI History of Present Illness Date/Time: 06/26/20 10:05 Chief complaint: Neoplasm Screening Narrative: Stefani Gonzalez is a 60 year old female who presents for colonoscopy. Her last one was 10 years ago. She had a few polyps removed at that time. No known fam hx colon cancer. Denies hematochezia or melena. Review of Systems Review of Systems: All systems reviewed & are unremarkable except as noted in HPI and below Constitutional: Constitutional: Denies chills, Denies fever(s), Denies headache(s) and Denies weight loss Eyes: Eyes: Denies change in vision ENT: Denies dizziness, Denies headache(s), Denies neck mass and Denies throat swelling Cardiovascular: Cardiovascular: Denies chest pain, Denies lightheadedness and Denies dyspnea Respiratory: Respiratory: Denies cough, Denies dyspnea and Denies wheezing Gastrointestinal: Gastrointestinal: Denies abdominal pain, Denies change in bowel habits, Denies nausea and Denies vomiting Genitourinary: Genitourinary: Denies hematuria and Denies dysuria Musculoskeletal: Musculoskeletal: Reports as per HPI Integumentary/Breasts: Skin/Breast: Reports as per HPI Neurologic: Denies dizziness and Denies headache(s) Allergic/Immunologic: Allergic/Immunologic: Denies throat swelling and Denies wheezing PMF Past Medical History Medical History COPD (chronic obstructive pulmonary disease) Depression Hypertension Pulmonary artery hypertension (~11/01/19) Rheumatoid arthritis Tobacco abuse Surgical History Surgical History History of tubal ligation 1982 Hx of tonsillectomy Age 5 Family History Family History Father Bowel cancer Mother , Age 72 Lung cancer Social History Social History Smoking packs per day: 0.5 Smoking cigarettes per day: 10.0 Years smoked: 44 Smoking pack-years: 22.00 Smoking status: Current every day smoker Tobacco type: cigarettes Second hand tobacco smoke exposure: Yes Alcohol intake: former Substance use: never Substance use type: does not use Additional occupation/education comments: Disabled to due Rheumatoid Arthritis. . 1 Child. Gender identity (if verbalized by the patient): Female Spiritual care concerns: No Agree to blood products: Yes Meds Home Medications and Allergies Home Medications Medication Instructions Recorded Confirmed Type hydrochlorothiazide 12.5 mg tablet 12.5 mg PO DAILY 08/30/19 06/14/20 History metoprolol succinate 50 mg 50 mg PO DAILY 08/30/19 06/14/20 History tablet,extended release 24 hr mirtazapine 45 mg tablet 45 mg PO HS #90 tablet 04/17/20 06/14/20 Rx albuterol sulfate 90 mcg/actuation See Rx Instructions .ROUTE 05/25/20 06/14/20 Rx aerosol inhaler .COMPLEX #8.5 inhaler tiotropium bromide 18 mcg capsule 1 cap INHALATION QAM 90 Days #90 05/25/20 06/14/20 Rx with inhalation device inhalation inhalational spacing device #1 each 05/28/20 Rx duloxetine 30 mg capsule,delayed 30 mg PO BID #180 cap 05/30/20 06/14/20 Rx release varenicline 0.5 mg (11)-1 mg (42) See Rx Instructions PO PER PKG DIR 05/30/20 06/14/20 Rx tablets in a dose pack #53 each trazodone 100 mg tablet 200 mg PO .Bedtime #60 tablet 06/07/20 06/14/20 Rx folic acid 1 mg PO DAILY 06/14/20 06/14/20 History ipratropium-albuterol 3 ml INHALATION Q4-6H PRN 06/14/20 06/14/20 History methotrexate sodium 20 mg PO WEEKLY 06/14/20 06/14/20 History Allergies Allergy/AdvReac Type Severity Reaction Status Date / Time No Known Allergies Allergy Verified 06/26/20 09:35 Vital Signs Vital Signs - 24 hr 06/26/20 09:37 Temperature 36.6 C Pulse Rate 80 Respiratory Rate 20 Blood Pressure 135/65 Pulse Oximetry 90 Exam Const: General:
[2020-06-26 10:40] VITALS: BP 98/58; PULSE 82; RESP 20; O2SAT 91
[2020-06-26 10:50] VITALS: BP 101/58; PULSE 63; RESP 20; O2SAT 97
[2020-06-26 11:00] VITALS: BP 114/69; PULSE 78; RESP 20; O2SAT 97
== END 2020-06-26 11:17 | disposition home or self-care (01) ==
PROVIDERS: PCP Family Medicine; Visit Provider Surgery
PROC: 0DJD8ZZ Inspection of Lower Intestinal Tract, Via Natural or Artificial Opening Endoscopic (ICD-10-PCS; CPT 45378; principal; 2020-06-26 10:00)
DX: Z12.11 Encounter for screening for malignant neoplasm of colon (principal); K57.30 Diverticulosis of large intestine without perforation or abscess without bleeding; K63.89 Other specified diseases of intestine; Z80.0 Family history of malignant neoplasm of digestive organs; I10 Essential (primary) hypertension; J44.9 Chronic obstructive pulmonary disease, unspecified; F32.9 Major depressive disorder, single episode, unspecified; M06.9 Rheumatoid arthritis, unspecified; I27.20 Pulmonary hypertension, unspecified; F17.210 Nicotine dependence, cigarettes, uncomplicated; Z79.51 Long term (current) use of inhaled steroids; Z79.899 Other long term (current) drug therapy
CPT/HCPCS: G0105; J2704; J7120

== ENCOUNTER 2020-06-27 13:17 | Outpatient (NON) | payer MEDICARE, MEDICAID, SELFPAY | END 2021-01-01 15:34 | disposition home or self-care (01) | PROVIDERS: Visit Provider Nurse Practitioner Family | DX: Z12.4 Encounter for screening for malignant neoplasm of cervix (principal); Z13.89 Encounter for screening for other disorder | CPT/HCPCS: 87491; 87591; 87624; 87625; 88141; 88175; G0145 ==

== ENCOUNTER 2020-07-04 09:23 | Outpatient (CLI) | payer MEDICARE, MEDICAID, SELFPAY ==
--- NOTE | ~2020-07-04 | MM_ITS ---
EXAMINATION: MM screening frankie BI w mohinder HISTORY: Screening mammogram TECHNIQUE: Craniocaudal and mediolateral oblique 3-D tomosynthesis images were obtained and synthetic 2-D images were generated. CAD analysis was submitted and interpreted. COMPARISON: No prior mammogram is available for comparison at this institution. BREAST PARENCHYMAL COMPOSITION: The breasts are heterogeneously dense, which may obscure small masses . FINDINGS: Bilateral possible breast masses are suggested. Bilateral diagnostic mammography is recomme nded, with ultrasound if required. IMPRESSION: 1. Possible bilateral breast masses 2. Bilateral diagnostic mammography is recommended, with ultrasound if required BI-RADS Category 0: Incomplete: Needs additional imaging evaluation. Reviewed, dictated and finalized at location A.
== END 2020-07-04 09:24 | disposition home or self-care (01) ==
PROVIDERS: PCP Nurse Practitioner Family; Visit Provider Nurse Practitioner Family
DX: Z12.31 Encounter for screening mammogram for malignant neoplasm of breast (principal)
CPT/HCPCS: 77063; 77067

== ENCOUNTER 2020-07-05 08:39 | Outpatient (CLI) | payer MEDICARE, MEDICAID, SELFPAY ==
--- NOTE | ~2020-07-05 | MMUS_ITS ---
EXAMINATION: MM diagnostic frankie BI w mohinder, US breast BI complete HISTORY: Bilateral possible breast masses noted on 07/04/2020 screening mammogram examination TECHNIQUE: Additional 3-D tomosynthesis images of both breasts were performed and synthetic 2-D image s were generated. CAD analysis was submitted and interpreted. High resolution bilateral complete [facility]ma[facility] st ultrasound was performed. COMPARISON: 07/04/2020 bilateral digital screening mammogram FINDINGS: MAMMOGRAPHIC FINDINGS: Occasional bilateral benign calcifications. Bilateral fibronodular asymmetry. The heterogeneous dense stroma may obscure masses. Bilateral complete breast ultrasound examination was performed. ULTRASOUND: Right breast: 1:00 2 cm from nipple: Parallel circumscribed 4 x 2 x 4.1 mm sonolucency, without internal vascularit y or suspicious shadowing, consistent with benign process. 2:00 5 cm from nipple: Parallel circumscribed 1.2 x 2.6 mm sonolucency with through transmission, con sistent with simple cyst. 3:00 near nipple: 2.4 x 2.9 mm sonolucency without internal vascularity or posterior features; the ma rgins are mildly irregular. Six-month follow-up ultrasound examination is recommended. 10:00 3 cm from nipple: 1.6 x 3.3 mm benign-appearing lymph node and 1.6 x 3.5 mm benign-appearing ly mph node Left breast: 12:00 2 cm from nipple: 1.3 x 1.9 mm circumscribed hypoechoic lesion 9:00 3 cm from nipple: 1.2 x 2.0 mm sonolucency with through transmission, consistent with small cyst 11:00 3 cm from nipple: Parallel circumscribed 1.5 x 4.5 x 2.6 mm hypoechoic area without internal va scularity or suspicious shadowing. IMPRESSION: 1. Probably benign 2.4 mm mildly irregular sonolucency at right breast 3:00 position near nipple 2. 6 month follow-up targeted right breast ultrasound at 3:00 near the nipple is recommended BI-RADS category 3, probably benign findings. Reviewed, dictated and finalized at location A. IMPRESSION: 1. Probably benign 2.4 mm mildly irregular sonolucency at right breast 3:00 pos ition near nipple 2. 6 month follow-up targeted right breast ultrasound at 3:00 near the nipple i s recommended BI-RADS category 3, probably benign findings.
== END 2020-07-05 08:40 | disposition home or self-care (01) ==
LOC: CHSIMG 08:40
PROVIDERS: PCP Nurse Practitioner Family; Visit Provider Nurse Practitioner Family
DX: R92.8 Other abnormal and inconclusive findings on diagnostic imaging of breast (principal)
CPT/HCPCS: 76641; 77062; 77066; G0279

== ENCOUNTER 2020-08-30 07:56 | Outpatient (CLI) | payer MEDICARE, MEDICAID, SELFPAY ==
--- NOTE | ~2020-08-30 | CT_ITS ---
EXAMINATION: CT abdomen pelvis wo/w con DATE: 08/30/2020 09:26 INDICATION: Gross hematuria. Nausea and vomiting. TECHNIQUE: Computed tomography (CT) of the abdomen and pelvis was performed without and with intraven ous contrast using a total of 130 mL Omnipaque-350 intravenous contrast with a double-bolus technique for simultaneous opacification of the renal parenchyma and renal collecting system. Automated exposu re control and iterative reconstruction technique were employed. The dose-length product was 822.82 m Gy-cm. COMPARISON: Chest CT 11/01/2019 FINDINGS: The visualized portions of the lung bases demonstrate mild bronchiectasis. There are tree-in-bud opac ities in the lower lobes, consistent with bronchiolectasis. Calcified right lung nodules are consiste nt with old granulomatous disease. No pleural effusion. The heart size is normal. There are coronary artery calcifications. There is a small pericardial effusion. The liver, gallbladder, spleen, pancrea s, and adrenal glands are normal. There are cysts in the kidneys measuring up to 11 mm on the right. There is no urolithiasis. Right ureter is well opacified and is normal. There is a 15 x 8 mm frond-li ke mass in left renal pelvis. The bladder is normal. There are no dilated loops of bowel. The appendi x is normal. There are no pathologically enlarged lymph nodes. There is no free intraperitoneal fluid . There is lumbar levoscoliosis and mild spondylosis. IMPRESSION: 1. 16 x 8 mm mass in left renal pelvis suspicious for urothelial carcinoma. Ureteroscopy is recommend ed. Reviewed, dictated and finalized at location B. L ADMINISTRATOR IMPRESSION: 1. 16 x 8 mm mass in left renal pelvis suspicious for urothelial carcinoma. Ure teroscopy is recommended.
[2020-08-30 08:17] LABS: Estimated Glomerular Filt Rate 59
== END 2020-08-30 07:57 | disposition home or self-care (01) ==
PROVIDERS: PCP Family Medicine; Visit Provider Family Medicine
DX: K92.0 Hematemesis (principal); R31.9 Hematuria, unspecified; R87.619 Unspecified abnormal cytological findings in specimens from cervix uteri
CPT/HCPCS: 74178; Q9965

== ENCOUNTER 2021-01-08 13:19 | Outpatient (CLI) | payer MEDICARE, MEDICAID, SELFPAY ==
--- NOTE | ~2021-01-08 | US_ITS ---
EXAMINATION: US breast RT limited HISTORY: Six-month follow-up for probably benign right breast mass TECHNIQUE: Limited ultrasound is performed at the 3:00 location in the right breast. COMPARISON: 07/05/2020 FINDINGS: There is a 5 mm x 3 mm oval, circumscribed, parallel, hypoechoic mass with no posterior fea tures or internal vascularity at the 3:00 location near the nipple. No suspicious interval change is identified. IMPRESSION: Probably benign right breast mass. Follow-up targeted right breast ultrasound six months is recommend ed. BI-RADS category 3, probably benign findings. Reviewed, dictated and finalized at location A. IMPRESSION: Probably benign right breast mass. Follow-up targeted right breast ultrasound s ix months is recommended. BI-RADS category 3, probably benign findings.
== END 2021-01-08 13:20 | disposition home or self-care (01) ==
PROVIDERS: PCP Family Medicine; Visit Provider Nurse Practitioner Family
DX: R92.8 Other abnormal and inconclusive findings on diagnostic imaging of breast (principal)
CPT/HCPCS: 76642

== ENCOUNTER 2021-08-23 11:10 | Outpatient (CLI) | payer MEDICARE, MEDICAID, SELFPAY ==
[2021-08-23 11:25] LABS: Basophils Absolute Auto 0.04 K/mm3 (0.00-0.10); Basophils Percent Auto 0.7 % (0.0-1.0); Eosinophils Absolute Auto 0.21 K/mm3 (0.02-0.50); Eosinophils Percent Auto 3.5 % (1.0-6.0); Hematocrit 40.4 % (35.0-49.0); Immature Granulocyte Absolute 0.01 K/mm3 (0.00-0.00); Immature Granulocyte Percent A 0.2 % (0.0-0.0); Lymphocytes Absolute Auto 0.64 K/mm3 (1.10-4.50); Lymphocytes Percent Auto 10.6 % (18.0-42.0); Mean Corpuscular HGB Conc 29.7 g/dL (32.0-36.0); Mean Corpuscular Hemoglobin 28.9 pg (27.0-31.0); Mean Corpuscular Volume 97.3 fL (78.0-102.0); Mean Platelet Volume 10.3 fl (9.2-11.8); Monocytes Absolute Auto 0.56 K/mm3 (0.10-0.90); Monocytes Percent Auto 9.3 % (2.0-11.0); Neutrophils Absolute Auto 4.6 K/mm3 (1.7-7.2); Neutrophils Percent Auto 75.7 % (50.0-70.0); Platelet Count Result 246 K/mm3 (150-420); Red Blood Count 4.15 M/mm3 (4.20-5.40)
[2021-08-23 12:36] LABS: Alanine Aminotransferase 26 U/L (14-59); Albumin Level 3.1 g/dL (3.4-5.0); Alkaline Phosphatase 90 U/L (46-116); Anion Gap 4 mmol/L (8-16); Aspartate Amino Transferase 11 U/L (15-37); Bilirubin,Total 0.2 mg/dL (0.00-1.00); Blood Urea Nitrogen 23 mg/dL (7-18); Calcium 9.6 mg/dL (8.5-10.1); Carbon Dioxide 34 mmol/L (21-32); Chloride 104 mmol/L (98-108); Cholesterol 161 mg/dL (0-200); Estimated Glomerular Filt Rate 47; Free T4 Free Thyroxine 0.84 ng/dL (0.76-1.46); Glucose 85 mg/dL (70-99); HDL Direct 48 mg/dL (40-60); LDL Cholesterol Calculated 101 mg/dL (<130); Osmolality Calculated 296 mOsm/kg (285-295); Potassium 4.5 mmol/L (3.5-5.1); Sodium 142 mmol/L (136-145); Total Protein 6.5 g/dL (6.4-8.2); Triglycerides 60 mg/dL (0-150)
[2021-08-23 13:11] LABS: Thyroid Stimulating Hormone Reflex 1.52 u/IU/mL (0.36-3.74)
[2021-08-26 20:56] LABS: T4 Thyroxine 5.5 mcg/dL (5.1-11.9)
== END 2021-08-23 11:11 | disposition home or self-care (01) ==
LOC: CHSLAB 11:13
PROVIDERS: PCP Family Medicine; Visit Provider Family Medicine
DX: R79.89 Other specified abnormal findings of blood chemistry (principal); I10 Essential (primary) hypertension; Z13.220 Encounter for screening for lipoid disorders; Z13.6 Encounter for screening for cardiovascular disorders
CPT/HCPCS: 36415; 80053; 80061; 84436; 84439; 84443; 85025

== ENCOUNTER 2021-09-27 08:58 | Outpatient (CLI) | payer MEDICARE, MEDICAID, SELFPAY ==
--- NOTE | ~2021-09-27 | US_ITS ---
US breast RT limited 09/27/2021 09:15 Indication: Follow-up right breast mass Procedure: High-resolution Limited right breast ultrasound Comparison: 01/08/2021 Findings: At 3:00 near the nipple there is an oval circumscribed hypoechoic mass with no posterior fe atures or internal vascularity measuring 6 x 4 x 2 mm, without significant change from prior examinat ion. Impression: 1: Stable 6 mm right breast mass at 3:00 near the nipple, likely complicated cyst. BI-RADS CATEGORY 3-PROBABLY BENIGN FINDING RECOMMENDATION: Six-month follow-up bilateral mammogram and limited right breast ultrasound. Reviewed, dictated and finalized at location A. [employer] Impression: 1: Stable 6 mm right breast mass at 3:00 near the nipple, likely complicated cy st. BI-RADS CATEGORY 3-PROBABLY BENIGN FINDING RECOMMENDATION: Six-month follow-up bilateral mammogram and limited right breas t ultrasound.
== END 2021-09-27 08:59 | disposition home or self-care (01) ==
LOC: CHSIMG 08:59
PROVIDERS: PCP Family Medicine; Visit Provider Family Medicine
DX: R92.8 Other abnormal and inconclusive findings on diagnostic imaging of breast (principal)
CPT/HCPCS: 76642

== ENCOUNTER 2021-10-05 08:19 | Outpatient (CLI) | payer MEDICARE, MEDICAID, SELFPAY ==
--- NOTE | ~2021-10-05 | MR_ITS ---
EXAMINATION: MR brain/brain stem wo con DATE: 10/05/2021 09:17 INDICATION: Headache, unspecified. TECHNIQUE: Magnetic resonance imaging (MRI) of the brain and brainstem was performed without intraven ous contrast. Sequences included sagittal and axial T1-weighted FSE, axial diffusion-weighted FS EPI, axial T2*-weighted GRE, axial T2-weighted FLAIR Propeller, and axial T2-weighted Propeller. Apparent diffusion coefficient (ADC) maps were created. COMPARISON: None. FINDINGS: There are scattered areas of nonspecific increased T2-weighted signal intensity in the cere bral white matter. There is no intracranial hemorrhage, acute infarction, or abnormal intracranial ma ss lesion. The ventricles are normal in size. The orbits are normal. There is mild mucosal thickening in the ethmoid sinuses. There are bilateral otomastoid effusions. IMPRESSION: 1. Moderate nonspecific cerebral white matter disease, which likely represents chronic small vessel i schemic disease. 2. Bilateral otomastoid effusions. Reviewed, dictated and finalized at location A. TING CONTRACT MAN IMPRESSION: 1. Moderate nonspecific cerebral white matter disease, which likely represents chronic small vessel ischemic disease. 2. Bilateral otomastoid effusions.
== END 2021-10-05 08:20 | disposition home or self-care (01) ==
LOC: CHSIMG 08:21
PROVIDERS: PCP Family Medicine; Visit Provider Family Medicine
DX: R51.9 Headache, unspecified (principal)
CPT/HCPCS: 70551

== ENCOUNTER 2022-10-21 14:43 | Outpatient (CLI) | payer MEDICARE, MEDICAID, SELFPAY ==
--- NOTE | ~2022-10-21 | XR_ITS ---
Clinical Indication: Swelling, shortness of breath PA and lateral views of the chest: Comparison: 11/01/2019 Findings: There are probable minimal bilateral pleural effusions with bibasilar chronic interstitial disease and/or emphysema change. Cardiomediastinal silhouette is within normal limits. Bones and sof t tissues are unremarkable. Impression: Probable minimal bilateral pleural effusions. Emphysema and/or bibasilar chronic interstitial disease. Reviewed, dictated and finalized at location M. UT SEPARATOR Impression: Probable minimal bilateral pleural effusions. Emphysema and/or bibasilar chronic interstitial disease.
[2022-10-21 15:06] LABS: Hematocrit 40.6 % (35.0-49.0); Hemoglobin 11.9 g/dL (12.0-15.0); Mean Corpuscular HGB Conc 29.3 g/dL (32.0-36.0); Mean Corpuscular Hemoglobin 27.4 pg (27.0-31.0); Mean Corpuscular Volume 93.3 fL (78.0-102.0); Mean Platelet Volume 10.4 fl (9.2-11.8); Platelet Count Result 270 K/mm3 (150-420); Red Blood Count 4.35 M/mm3 (4.20-5.40); Red Cell Distribution Width 18.7 % (11.6-14.4); White Blood Count 10.1 K/mm3 (4.8-10.8)
--- NOTE | 2022-10-21 15:29 | ECG_ITS ---
Measurements Intervals [place] Rate: 93 P: 71 WA: 151 QRS: 106 QRSD: 90 T: 52 QT: 348 QTc: 435 Interpretive Statements SINUS RHYTHM CONSIDER LIMB LEAD REVERSSAL BORDERLINE R WAVE PROGRESSION, ANTERIOR LEADS BORDERLINE ECG COMPARED TO ECG 11/01/2019 17:19:15 NO SIGNIFICANT CHANGES Electronically Signed On 10-21-2022 16:31:36 [employer] by Kj Turk D.O.
[2022-10-21 15:41] LABS: Alanine Aminotransferase 19 U/L (14-59); Albumin Level 2.7 g/dL (3.4-5.0); Alkaline Phosphatase 64 U/L (46-116); Anion Gap 2 mmol/L (8-16); Aspartate Amino Transferase 19 U/L (15-37); Bilirubin,Total 0.3 mg/dL (0.00-1.00); Blood Urea Nitrogen 24 mg/dL (7-18); Calcium 9.3 mg/dL (8.5-10.1); Carbon Dioxide 35 mmol/L (21-32); Chloride 101 mmol/L (98-108); Estimated Glomerular Filt Rate 60; Glucose 95 mg/dL (70-99); NT Pro B Type Natriuretic Pept 3061 pg/mL (0-125); Osmolality Calculated 290 mOsm/kg (285-295); Potassium 4.5 mmol/L (3.5-5.1); Sodium 138 mmol/L (136-145); Total Protein 5.8 g/dL (6.4-8.2)
[2022-10-21 15:44] LABS: Influenza A QL RT-PCR Negative (Negative); Influenza B QL RT-PCR Negative (Negative); SARS-CoV-2 RNA PCR Negative (Negative)
== END 2022-10-21 14:44 | disposition home or self-care (01) ==
PROVIDERS: PCP Family Medicine; Visit Provider Family Medicine
DX: I10 Essential (primary) hypertension (principal); R60.1 Generalized edema; R91.8 Other nonspecific abnormal finding of lung field
CPT/HCPCS: 36415; 71046; 80053; 83880; 85027; 87636; 93005

== ENCOUNTER 2022-11-05 14:24 | Emergency (ER) | payer MEDICARE, MEDICAID, SELFPAY ==
[2022-11-05] VITALS (28 sets, daily range): BP systolic 117–141; BP diastolic 68–85; PULSE 68–96; RESP 15–25; TEMP 36.8–36.9; O2SAT 92–100
--- NOTE | ~2022-11-05 | XR_ITS ---
EXAMINATION: XR chest 1V portable DATE: 11/05/2022 15:03 INDICATION: Shortness of breath. TECHNIQUE: A single frontal view of the chest was obtained. COMPARISON: Chest 2 views 10/21/2022, CT abdomen and pelvis 08/30/2020 FINDINGS: There are mild airspace opacities in the lower lung zones. There is a small right pleural e ffusion. No pneumothorax. Cardiomegaly is noted. IMPRESSION: 1. Mild airspace opacities in the lower lung zones, consistent with atelectasis/scarring versus mild pulmonary edema versus pneumonia. 2. Cardiomegaly. Reviewed, dictated and finalized at location A. [place] SALES MANAGER IMPRESSION: 1. Mild airspace opacities in the lower lung zones, consistent with atelectasis /scarring versus mild pulmonary edema versus pneumonia. 2. Cardiomegaly.
--- NOTE | 2022-11-05 14:44 | ED.SOB ---
HPI - SOB/Dyspnea General Chief Complaint: Shortness of Breath/Dyspnea Stated Complaint: short of breath Time Seen by Provider: 11/05/22 14:27 Source: patient Mode of arrival: wheelchair History of Present Illness HPI Narrative: 62-year-old female, smoker, marijuana user with anxiety/ depression, memory loss, hypertension, rheumatoid arthritis, sleep disorder, COPD, renal cell carcinoma status post left nephrectomy pulmonary hypertension presents to the ER with a 3 week history of -- worsening shortness of breath with dyspnea on exertion and orthopnea -- chronic cough with mucopurulent sputum -- anterior chest pain without any relation to breathing or activity. -- Increasing leg swelling with weeping of both legs -- increased abdominal distension she went to Dr. iGang office 1 week ago and advised to continue her diuretics and an echo was ordered. She went back to Dr. Giang office today and was noted to be -- hypoxic with oxygen saturation in the 70s following which she was placed on 6 L of O2. She was wheeled to the ER. MD elicited complaint: shortness of breath, cough and chest pain Pertinent past history: COPD and congestive heart failure Onset (ago): week(s) ( since August but has been worse for the past 3 weeks) Timing: constant Severity: severe Exacerbating factors: lying flat, exertion, movement and coughing Relieving factors: nothing, rest and bronchodilators Known history of: COPD and congestive heart failure Associated symptoms: chest pain, cough, wheezing, sputum production, orthopnea and chest congestion Treatment prior to arrival: bronchodilator Related Data Home oxygen amount: none Home Medications Medication Instructions Recorded Confirmed bupropion HCl 150 mg tablet,12 hr 150 mg PO BID 11/05/22 11/05/22 sustained-release Allergies Allergy/AdvReac Type Severity Reaction Status Date / Time No Known Allergies Allergy Verified 11/05/22 14:56 Review of Systems Constitutional: Constitutional: Reports as per HPI and Reports no additional constitutional complaints Eyes: Eyes: Reports as per HPI and Reports no additional eye complaints ENT: Reports system reviewed and no additional complaints, except as documented and Reports as per HPI Cardiovascular: Cardiovascular: Reports as per HPI, Reports no additional cardiovascular complaints and Reports chest pain Comments: anterior chest pain without any relation to exercise, breathing or coughing. Respiratory: Respiratory: Reports as per HPI, Reports no additional respiratory complaints, Reports chest congestion, Reports cough, Reports dyspnea and Reports wheezing Comments: Mucopurulent sputum Gastrointestinal: Gastrointestinal: Reports as per HPI, Reports no additional gastrointestinal complaints and Reports bloating Genitourinary: Genitourinary: Reports no additional female genitourinary complaints Musculoskeletal: Musculoskeletal: Reports no additional musculoskeletal complaints Integumentary/Breasts: Skin/Breast: Reports system reviewed and no additional complaints, except as docu and Reports as per HPI Comments: chronic lymphedema both lower extremities Neurologic: Reports system reviewed and no additional complaints, except as documented and Reports as per HPI Psychiatric: Psychiatric: Reports no additional psychiatric complaints, Reports as per HPI, Reports anxiety and Reports depression Endocrine: Endocrine: Reports no additional endocrine complaints and Reports as per HPI Hematologic/Lymphatic: Hematologic/Lymphatic: Reports no additional hematologic/lymphatic complaints and Reports as per HPI Allergic/Immunologic: Allergic/Immunologic: Reports no additional allergic/immunologic complaints and Reports as per HPI [facility] Past Medical History Medical History Abnormal colonoscopy Abnormal mammogram Anxiety Anxiety COPD (chronic obstructive pulmonary disease) Depressi
--- NOTE | 2022-11-05 14:50 | ECG_ITS ---
Measurements Intervals [place] Rate: 71 P: 92 SC: 163 QRS: 125 QRSD: 100 T: 119 QT: 427 QTc: 467 Interpretive Statements SINUS RHYTHM CONSIDER LIMB LEAD REVERSSAL BORDERLINE R WAVE PROGRESSION, ANTERIOR LEADS T WAVE ABNORMALITY IN ANTERIOR LEADS- CONSIDER ISCHEMIA ABNORMAL ECG COMPARED TO ECG 10/21/2022 15:29:16 T WAVE ABNORMALY NOW PRESENT Electronically Signed On 11-05-2022 15:25:22 WHEEL CUTTER by Kj Turk D.O.
[2022-11-05] MEDS: IPRATROPIUM 0.5 MG/ALBUTEROL SULFATE 2.5 MG AMPUL.NEB 3 ML INHALATION (15:00)
[2022-11-05 15:39] LABS: Add Urine Microscopic? NO; Appearance Urine Clear (Clear); Bilirubin Urine Negative (Negative); Blood Urine Negative (Negative); Color Urine Light Yellow (Yellow); Glucose Urine UA Negative (Negative); Ketones Urine Negative (Negative); Leukocyte Esterase Ur Negative LEU/UL (Negative); Nitrate Urine Negative (Negative); Protein Urine Negative (Negative); Urobilinogen Urine 0.2 mg/dL (0.2-1.0); pH Urine 6.5 (5.0-8.0)
[2022-11-05 15:42] LABS: Basophils Absolute Auto 0.03 K/mm3 (0.00-0.10); Basophils Percent Auto 0.3 % (0.0-1.0); Eosinophils Absolute Auto 0.08 K/mm3 (0.02-0.50); Eosinophils Percent Auto 0.9 % (1.0-6.0); Hematocrit 35.3 % (35.0-49.0); Hemoglobin 10.1 g/dL (12.0-15.0); Immature Granulocyte Absolute 0.03 K/mm3 (0.00-0.00); Immature Granulocyte Percent A 0.3 % (0.0-0.0); Lymphocytes Percent Auto 7.9 % (18.0-42.0); Mean Corpuscular HGB Conc 28.6 g/dL (32.0-36.0); Mean Corpuscular Hemoglobin 25.7 pg (27.0-31.0); Mean Corpuscular Volume 89.8 fL (78.0-102.0); Mean Platelet Volume 11.2 fl (9.2-11.8); Monocytes Absolute Auto 0.92 K/mm3 (0.10-0.90); Monocytes Percent Auto 10.4 % (2.0-11.0); Neutrophils Absolute Auto 7.1 K/mm3 (1.7-7.2); Neutrophils Percent Auto 80.2 % (50.0-70.0); Platelet Count Result 279 K/mm3 (150-420); Red Blood Count 3.93 M/mm3 (4.20-5.40); Red Cell Distribution Width 19.5 % (11.6-14.4); White Blood Count 8.9 K/mm3 (4.8-10.8)
[2022-11-05] MEDS: FUROSEMIDE INJ 40 MG/4 ML VIAL IV PUSH (15:56)
[2022-11-05 15:59] LABS: INR 1.1; Partial Thromboplastin Time 23.6 SEC (23.90-30.70); Prothrombin Time 12.2 Seconds (9.50-12.10)
[2022-11-05 16:00] LABS: D Dimer 1.46 mg/L (0.19-0.50)
[2022-11-05 16:04] LABS: Lactic Acid Reflex 1.4 mmol/L (0.4-2.0)
[2022-11-05 16:10] LABS: Alanine Aminotransferase 35 U/L (14-59); Albumin Level 2.5 g/dL (3.4-5.0); Alkaline Phosphatase 65 U/L (46-116); Aspartate Amino Transferase 37 U/L (15-37); Bilirubin,Total 0.3 mg/dL (0.00-1.00); Blood Urea Nitrogen 44 mg/dL (7-18); Calcium 9.1 mg/dL (8.5-10.1); Carbon Dioxide 39 mmol/L (21-32); Estimated CRCL calculation 33 ml/min; Estimated Glomerular Filt Rate 40; Glucose 102 mg/dL (70-99); NT Pro B Type Natriuretic Pept 3711 pg/mL (0-125); Thyroid Stimulating Hormone 12.65 uIU/mL (0.36-3.74); Troponin I 21.5 ng/L (0.00-60.4)
[2022-11-05 16:13] LABS: CRP 2.3 mg/dL (0.0-0.9)
[2022-11-05 16:17] LABS: Influenza A QL RT-PCR Negative (Negative); Influenza B QL RT-PCR Negative (Negative); SARS-CoV-2 RNA PCR Negative (Negative)
[2022-11-05 16:19] LABS: RSV RNA, RT-PCR Negative (Negative)
[2022-11-05 16:46] LABS: Base Excess ABG 10.9 mmol/L (0-2); HCO3 ABG 36.7 mmol/L (23-29); Oxygen Content ABG 13.5 %vol (16.0-22.0); Oxygen Saturation ABG 88.6 % (95-97); Oxyhemoglobin 84.2 % (94-100); PCO2 ABG 54.2 mmHg (35-45); PO2 ABG 57.3 mmHg (80-90); Total Hemoglobin 11.4 g/dL (12.0-18.0); pH ABG 7.45 (7.35-7.45)
[2022-11-05 16:47] LABS: Device NASAL CANNULA; Modified Allen's Test Pass; Site Drawn LEFT RADIAL
[2022-11-05] MEDS: POTASSIUM CHLORIDE 20 MEQ TABLET 40 MEQ PO (16:49)
[2022-11-05] MEDS: SODIUM CHLORIDE 0.9% IV 500 ML 999 ML IV CONT (17:01)
[2022-11-05 17:04] LABS: Magnesium 2.1 mg/dL (1.8-2.4)
[2022-11-05 18:14] LABS: Sodium 138 mmol/L (136-145)
[2022-11-05 18:15] LABS: Anion Gap 5 mmol/L (8-16); Chloride 94 mmol/L (98-108); Osmolality Calculated 297 mOsm/kg (285-295); Potassium 3.4 mmol/L (3.5-5.1)
--- NOTE | 2022-11-11 12:12 | PC.NURSE ---
FINAL BLOOD CULTURE RESULTS X2: NO GROWTH AFTER 5 DAYS, NO ACTION NEEDED.
== END 2022-11-05 17:28 | disposition short-term general hospital (02) ==
PROVIDERS: Emergency Provider Internal Medicine Critical Care Medicine; PCP Family Medicine
DX: M06.9 Rheumatoid arthritis, unspecified (principal); R60.1 Generalized edema; I11.0 Hypertensive heart disease with heart failure; I50.9 Heart failure, unspecified; J44.1 Chronic obstructive pulmonary disease with (acute) exacerbation; N17.9 Acute kidney failure, unspecified; E87.8 Other disorders of electrolyte and fluid balance, not elsewhere classified; F32.9 Major depressive disorder, single episode, unspecified; F41.9 Anxiety disorder, unspecified; F17.210 Nicotine dependence, cigarettes, uncomplicated; Z85.89 Personal history of malignant neoplasm of other organs and systems; Z90.5 Acquired absence of kidney; Z20.822 Contact with and (suspected) exposure to COVID-19
CPT/HCPCS: 36415; 36600; 71045; 80053; 81003; 82805; 83605; 83735; 83880; 84443; 84484; 85025; 85380; 85610; 85730; 86140; 87040; 87637; 93005; 94640; 96374; 99285; A9270; J1940; J7040

== ENCOUNTER 2022-11-05 18:07 | Inpatient (IN) | payer MEDICARE, MEDICAID, SELFPAY ==
[2022-11-05] VITALS (9 sets, daily range): BP systolic 110–118; BP diastolic 56–68; PULSE 71–78; RESP 18–20; TEMP 36.5–36.8; O2SAT 95–97; BMI 23.6
--- NOTE | ~2022-11-05 | US_ITS ---
EXAMINATION: US venous doppler [facility] DATE: 11/05/2022 22:45 INDICATION: Lower limb edema. TECHNIQUE: Grayscale ultrasound images without and with compression and Doppler ultrasound images of the bilateral lower extremity veins were obtained. COMPARISON: None. FINDINGS: The visualized portions of right common femoral vein, profunda (deep) femoral vein, femoral vein, pop liteal vein, peroneal veins, posterior tibial veins, and greater saphenous vein outflow are patent. The visualized portions of left common femoral vein, profunda femoral vein, femoral vein, popliteal v ein, peroneal veins, posterior tibial veins, and greater saphenous vein outflow are patent. IMPRESSION: 1. No deep venous thrombosis. Reviewed, dictated and finalized at location A. BI DEVELOPER
--- NOTE | ~2022-11-05 | CT_ITS ---
EXAMINATION: CTA chest PE abdomen pel DATE: 11/05/2022 20:21 INDICATION: Ascites. TECHNIQUE: Computed tomography angiography (CTA) of the chest was performed with 100 mL Omnipaque-350 intravenous contrast timed to evaluate the pulmonary arteries. Coronal maximum intensity projection 3D-reconstructions were created by the technologist. Computed tomography (CT) of the abdomen and pelv is was performed with intravenous contrast. Automated exposure control and iterative reconstruction t echnique were employed. The dose-length product was 517.08 mGy-cm. COMPARISON: CT abdomen and pelvis 08/30/2020, chest CT 11/01/19 FINDINGS: CTA chest: There is mild emphysema. There is mild bronchiectasis in the inferior lungs. There are marah e-in-bud opacities in all lobes with a lower lung predominance. There is mild atelectasis bilaterally . There is smooth septal thickening in the inferior lungs, consistent with mild pulmonary edema. Ther e are small pleural effusions. Cardiomegaly is noted. There are coronary artery calcifications. Ther e is a moderate-sized pericardial effusion. There is no pulmonary embolus. The central pulmonary evan faith are enlarged, consistent with pulmonary arterial hypertension. CT abdomen and pelvis: The liver demonstrates periportal edema. The gallbladder is normal in size. Ga llbladder wall thickening is likely secondary to interstitial edema. The spleen, pancreas, and adrena l glands are normal. There are cysts in right kidney measuring up to 14 mm. There are changes of left nephrectomy. There is a small volume of ascites. There is widespread edema of the body wall, intra-a bdominal fat, and thighs. There are no dilated loops of bowel. The appendix is normal. There are no p athologically enlarged lymph nodes. There is gas in the bladder lumen, likely from recent instrumenta tion. There is lumbar levoscoliosis and moderate spondylosis. IMPRESSION: 1. No pulmonary embolus. 2. Mild emphysema. 3. Mild bilateral pneumonia, likely chronic or recurrent. 4. Anasarca including mild pulmonary edema, small pleural effusions, moderate-sized pericardial effus ion, and small volume of ascites. Reviewed, dictated and finalized at location A. CTOR OF ONLINE MERCHANDISING IMPRESSION: 1. No pulmonary embolus. 2. Mild emphysema. 3. Mild bilateral pneumonia, likely chronic or recurrent. 4. Anasarca including mild pulmonary edema, small pleural effusions, moderate-s ized pericardial effusion, and small volume of ascites.
--- NOTE | ~2022-11-05 | US_ITS ---
EXAMINATION: US renal BI DATE: 11/05/2022 22:45 INDICATION: Acute renal failure. TECHNIQUE: Multiple ultrasound grayscale images of the kidneys were obtained. COMPARISON: CT 11/05/2022 FINDINGS: The right kidney measures 10.3 x 4.8 x 5.7 cm. There is a 14 mm cyst in right kidney. Right kidney pa renchymal echogenicity is normal. The left kidney is absent. There is no hydronephrosis. The bladder is well visualized. There is a small volume of ascites. IMPRESSION: 1. Normal right kidney size. No hydronephrosis. 2. Absent left kidney. 3. Small volume of ascites. Reviewed, dictated and finalized at location A. INFORMATION TECHNOLOGY
--- NOTE | 2022-11-05 19:01 | ADMGEN ---
This patient, Stefani Gonzalez, was admitted to IMU Room 210-01 @ 1810 direct from [facility]. Patient/family oriented to hospital policies and general routines including ID bracelet, bed and alarms, visiting hours, pain management, procedures, bathroom and other care routines, personal items, smoking policy, room service/diet, and visiting hours.. Pt a/o x3 O2 on 2 l/nc- mild sob with activity. denies any c/o pain Information on how to activate the Rapid Response Team has been discussed. Patient/Family are encouraged to report perceived risks to care and to ask questions if they do not understand what they are told or what they should do.
--- NOTE | 2022-11-05 19:01 | PC.NURSE ---
Cardiopulmonary Rehab Services flyer was given to patient.
--- NOTE | 2022-11-05 19:08 | PM.IMHP ---
H&P: HPI History of Present Illness Date/Time: 11/05/22 19:08 Chief Complaint: Shortness of breath Narrative: This is a 62-year-old female patient who came from [facility]. She has a history of COPD and still continues to smoke. She also has a history of hypertension rheumatoid arthritis and sleep distended order insomnia. She had renal cell carcinoma status post left nephrectomy and pulmonary hypertension. For the last 3 weeks she has had increased abdominal distension worsening shortness of breath and orthopnea. The patient has had to sleep in a recliner. She has had increased swelling and weeping to her lower extremities and increased abdominal discomfort. The patient has been on diuretics an echo has been ordered the patient went to see her primary care doctor today and her O2 saturations were in the 70s and she was placed on 6 L of oxygen. The patient does not wear oxygen at home. The patient stated that she does have COPD but she was unaware of CHF. The patient was given 40 mg of Lasix at [facility]. She was also found have a sodium of 123 and she was given 250 mL of normal saline. She was also found to have positive D-dimer. Her D-dimer was 1.46. Arterial blood gases pH 7.45 CO2 54.2. PO2 57.3. Her potassium was found to be 3.4 today and she was given potassium supplement at [facility]. Her BUN is 44 creatinine 1.35. C reactive protein is 2.3. BNP 3711. CT of the chest abdomen and pelvis was read as 1. No pulmonary embolus. 2. Mild emphysema. 3. Mild bilateral pneumonia, likely chronic or recurrent. 4. Anasarca including mild pulmonary edema, small pleural effusions, moderate-sized pericardial effusion, and small volume of ascites. The patient was placed on oxygen at 2 L per nasal cannula. She is not typically on oxygen at home. The patient is being admitted to inpatient status on the date of service of 11/05/2022 Review of Systems Review of Systems: See HPI All systems reviewed & are unremarkable except as noted in HPI and below Constitutional: Constitutional: Reports as per HPI and Reports no additional constitutional complaints Eyes: Eyes: Reports as per HPI and Reports no additional eye complaints ENT: Reports system reviewed and no additional complaints, except as documented and Reports Normal hearing present Cardiovascular: Cardiovascular: Reports no additional cardiovascular complaints Respiratory: Respiratory: Reports no additional respiratory complaints and Reports no additional respiratory complaints Gastrointestinal: Gastrointestinal: Reports as per HPI and Reports no additional gastrointestinal complaints Musculoskeletal: Musculoskeletal: Reports no additional musculoskeletal complaints Integumentary/Breasts: Skin/Breast: Reports system reviewed and no additional complaints, except as docu and Reports as per HPI Neurologic: Reports system reviewed and no additional complaints, except as documented, Reports as per HPI and Reports Normal hearing present Psychiatric: Psychiatric: Reports no additional psychiatric complaints and Reports as per HPI Endocrine: Endocrine: Reports no additional endocrine complaints Hematologic/Lymphatic: Hematologic/Lymphatic: Reports no additional hematologic/lymphatic complaints Allergic/Immunologic: Allergic/Immunologic: Reports no additional allergic/immunologic complaints [facility] Past Medical History Medical History Abnormal colonoscopy Abnormal mammogram Anxiety Anxiety COPD (chronic obstructive pulmonary disease) Depression Diarrhea Encounter for lipid screening for cardiovascular disease Headache History of gastric ulcer HPV in female Hypertension Kidney malignancy Leg laceration Low TSH level Pulmonary artery hypertension (~11/01/19) Rheumatoid arthritis Rheumatoid arthritis with rheumatoid factor of multiple sites without organ or systems involvement Sleep disorder Tobacco abuse
[2022-11-05] MEDS: ALBUTEROL SULFATE NEB 2.5 MG/3 ML INH INHALATION (20:55)
[2022-11-05 21:17] LABS: Lactic Acid Reflex 1.4 mmol/L (0.7-2.0)
[2022-11-05 21:25] LABS: Magnesium 2.1 mg/dL (1.6-2.3)
[2022-11-05] MEDS: MIRTAZAPINE 15 MG TABLET 45 MG PO (21:39)
[2022-11-05] MEDS: QUEtiapine FUMARATE 100 MG TABLET PO (21:39)
[2022-11-05] MEDS: traZODone HCL 50 MG TABLET 200 MG PO (21:40)
[2022-11-05 22:14] LABS: Anion Gap 6 mmol/L (8-16); Blood Urea Nitrogen 46 mg/dL (7-17); Calcium 8.5 mg/dL (8.4-10.2); Carbon Dioxide 36 mmol/L (22-30); Chloride 92 mmol/L (98-107); Estimated CRCL calculation 37 ml/min; Estimated Glomerular Filt Rate 46; Glucose 98 mg/dL (65-110); Potassium 3.7 mmol/L (3.4-5.0); Sodium 134 mmol/L (137-145)
[2022-11-06] VITALS (22 sets, daily range): BP systolic 101–146; BP diastolic 59–80; PULSE 66–81; RESP 18–24; TEMP 36.3–36.9; O2SAT 93–100
--- NOTE | 2022-11-06 | ECHO_ITS ---
Patient Info Name: Stefani Gonzalez Age: 62 years : 1960 Gender: Female Ht: 64 in Wt: 137 lbs BSA: 1.68 m2 HR: 75 bpm BP: 101 / 59 mmHg Heart Rhythm: Sinus Rhythm Exam Date: 11/06/2022 8:24 AM Exam Location: [facility] Pulmonary Patient Status: Outpatient Admit Date: 11/05/2022 Staff Ordering Physician: Shanta Lozada NP Natural Resources Manager: Zenon Rosario RDCS, RT Attending Provider: Georgie Cabrera PA-C Referring Physician: Kierra QUINTEROS; Exam Type: CA echo doppler color flow Study Info Indications J81.0 - Acute pulmonary edema Complete two-dimensional, color flow and Doppler transthoracic echocardiogram is performed. Strain analysis performed. Summary 1. Complete two-dimensional, color flow and Doppler transthoracic echocardiogram is performed. 2. Left ventricular chamber dimension is normal. 3. Left ventricular systolic function is normal, estimated at 60-65%. 4. There is mildly increased left ventricular wall thickness. 5. The left ventricular diastolic function is grade I diastolic dysfunction. 6. Right ventricular chamber dimension is mildly enlarged. 7. Right ventricular systolic function is normal. 8. Flattening of the septum in diastole and systole consistent with right ventricular volume and pressure overload. 9. Right atrial chamber dimension is moderately enlarged. 10. There is moderate tricuspid valve regurgitation. 11. Dilated inferior vena cava with no collapse upon inspiration consistent with elevated right atrial pressure, 15 mmHg. 12. There is moderate posterior pericardial effusion and a small anterior pericardial effusion. No evidence of tamponade. 13. Pulmonary hypertension with an estimated pulmonary artery systolic pressure of 69mmHg. Left Ventricle Left ventricular chamber dimension is normal. Left ventricular systolic function is normal, estimated at 60-65%. There is mildly increased left ventricular wall thickness. The left ventricular diastolic function is grade I diastolic dysfunction. Global longitudinal strain is normal at -21 %. Right Ventricle Flattening of the septum in diastole and systole consistent with right ventricular volume and pressure overload. Right ventricular chamber dimension is mildly enlarged. Right ventricular systolic function is normal. Left Atria Left atrial chamber dimension is normal. Right Atria Right atrial chamber dimension is moderately enlarged. Atrial Septum Intact interatrial septum visualized by color flow imaging. Aortic Valve The aortic valve is trileaflet. There is no aortic valve stenosis. There is no aortic valve regurgitation. Pulmonic Valve The pulmonic valve is not well visualized. Mitral Valve The mitral valve has normal leaflets. There is no mitral valve stenosis. There is trace mitral valve regurgitation. Tricuspid Valve The tricuspid valve leaflets are normal. There is no significant tricuspid valve stenosis. There is moderate tricuspid valve regurgitation. Pericardium/Pleural There is moderate posterior pericardial effusion and a small anterior pericardial effusion. No evidence of tamponade. Inferior Vena Cava Dilated inferior vena cava with no collapse upon inspiration consistent with elevated right atrial pressure, 15 mmHg. Aorta The aortic root size at the sinus of Valsalva is normal. Left Ventricular Outflow Tract Name Value Normal
[2022-11-06] MEDS: methylPREDNISolone SOD SUCC 125 MG VIAL 60 MG IV PUSH ×4 (00:15→20:58)
[2022-11-06] MEDS: ALBUTEROL SULFATE NEB 2.5 MG/3 ML INH INHALATION ×4 (01:09→19:39)
[2022-11-06 04:15] LABS: Basophils Percent Auto 0.3 % (0.2-1.2); Eosinophils Percent Auto 0.4 % (0-4.4); Hematocrit 36.5 % (37.0-47.0); Hemoglobin 10.3 g/dL (12.0-15.0); Immature Granulocyte Absolute 0.03 K/mm3 (0.00-0.031); Immature Granulocyte Percent A 0.3 % (0-0.5); Lymphocytes Absolute Auto 0.73 K/mm3 (0.9-3.2); Lymphocytes Percent Auto 6.6 % (18.3-44.2); Mean Corpuscular HGB Conc 28.2 g/dl (32-36); Mean Corpuscular Hemoglobin 25.3 pg (26-34); Mean Corpuscular Volume 89.7 fl (80-100); Mean Platelet Volume 10.9 fl (7.4-10.4); Monocytes Absolute Auto 0.3 K/mm3 (0.1-0.6); Monocytes Percent Auto 2.8 % (2.6-8.5); Neutrophils Absolute Auto 9.9 K/mm3 (1.3-6.7); Neutrophils Percent Auto 89.6 % (45.5-73.1); Platelet Count Result 264 k/mm3 (150-375); Red Blood Count 4.07 M/mm3 (4.2-5.4); Red Cell Distribution Width 19.9 % (11.5-14.5)
[2022-11-06 05:21] LABS: Anisocytosis 2+ (NORMAL); Hypochromasia 2+ (NORMAL); Microcytosis 1+ (NORMAL); Platelet Estimate Adequate (Adequate)
[2022-11-06 05:22] LABS: Burr Cells 1+ (NORMAL); Stomatocytes 1+ (NORMAL)
[2022-11-06 05:23] LABS: Atypical Lymphocytes Present; Schistocytes None Seen (NORMAL)
[2022-11-06 09:33] LABS: Alanine Aminotransferase 36 U/L (6-35); Albumin Level 3.1 g/dL (3.5-5.1); Alkaline Phosphatase 63 U/L (38-126); Anion Gap 5 mmol/L (8-16); Aspartate Amino Transferase 48 U/L (14-36); Bilirubin,Total 0.3 mg/dL (0.2-1.3); Blood Urea Nitrogen 43 mg/dL (7-17); Calcium 8.8 mg/dL (8.4-10.2); Carbon Dioxide 36 mmol/L (22-30); Chloride 95 mmol/L (98-107); Estimated CRCL calculation 37 ml/min; Estimated Glomerular Filt Rate 46; Glucose 117 mg/dL (65-110); Potassium 4.3 mmol/L (3.4-5.0); Sodium 136 mmol/L (137-145)
[2022-11-06] MEDS: SERTRALINE HCL 50 MG TABLET 100 MG PO (09:43)
[2022-11-06] MEDS: FUROSEMIDE INJ 40 MG/4 ML VIAL IV PUSH (09:43)
[2022-11-06] MEDS: ENOXAPARIN 40 MG/0.4 ML SYRINGE SUB-Q (09:43)
[2022-11-06] MEDS: METOPROLOL SUCCINATE EXT REL 50 MG TABCR PO (09:43)
[2022-11-06] MEDS: HYDROXYCHLOROQUINE SULFATE 200 MG TABLET PO (09:43)
[2022-11-06] MEDS: FOLIC ACID 1 MG TABLET PO (09:43)
--- NOTE | 2022-11-06 10:36 | PM.CNCAR ---
Assessment and Plan Assessment and plan (1) Pericardial effusion: Code(s): I31.39 - Other pericardial effusion (noninflammatory) Status: Acute (2) CHF exacerbation: Code(s): I50.9 - Heart failure, unspecified Status: Acute (3) Anasarca: Code(s): R60.1 - Generalized edema Status: Acute (4) Rheumatoid arthritis with rheumatoid factor of multiple sites without organ or systems involvement: Code(s): M05.79 - Rheumatoid arthritis with rheumatoid factor of multiple sites without organ or systems involvement Status: Acute (5) Low TSH level: Code(s): R79.89 - Other specified abnormal findings of blood chemistry Status: Acute (6) Nicotine dependence, unspecified, uncomplicated: Code(s): F17.200 - Nicotine dependence, unspecified, uncomplicated Status: Acute (7) COPD (chronic obstructive pulmonary disease): Code(s): J44.9 - Chronic obstructive pulmonary disease, unspecified Status: Acute (8) Hypertension: Code(s): I10 - Essential (primary) hypertension Status: Acute Plan Will obtain TTE for better evaluation of pericardial effusion. At this time, patient clinically does not have signs of tamponade. Given volume overload state, would continue with IV diuresis. TSH is elevated. T4 pending. Hypothyroidism could cause pericardial effusion. Will see what her T4 level is. History of Present Illness History of Present Illness Consult date/time: 11/06/22 10:36 Requesting physician: Shanta Lozada NP Consult reason: congestive heart failure Reason For Visit: New onset CHF, Acute renal failure Narrative: We are consulted for pericardial effusion. This is a 62-year-old female with a history of COPD, tobacco dependence, hypertension, rheumatoid arthritis, renal cell carcinoma s/p left nephrectomy who reports that she became sick back in August. Since then, she has been having lower extremity edema, swelling in her abdomen. Had gotten Lasix from her primary care, but did not notice improvement with that. ER evaluation showed GEORGETTE with SCr of 1.2, elevated liver enzymes, negative troponin. CTA showed no PE, mild pulmonary edema, small pleural effusions, moderate-sized pericardial effusion, anasarca. Patient was started on IV Lasix. Review of Systems Review of Systems: 12-point ROS obtained. Negative, unless stated in HPI. [facility] Past Medical History Medical History Abnormal colonoscopy Abnormal mammogram Anxiety Anxiety COPD (chronic obstructive pulmonary disease) Depression Diarrhea Encounter for lipid screening for cardiovascular disease Headache History of gastric ulcer HPV in female Hypertension Kidney malignancy Leg laceration Low TSH level Pulmonary artery hypertension (~11/01/19) Rheumatoid arthritis Rheumatoid arthritis with rheumatoid factor of multiple sites without organ or systems involvement Sleep disorder Tobacco abuse Surgical History Surgical History H/O foot surgery H/O hand surgery H/O kidney removal History of ankle surgery History of tubal ligation 1981 Hx of tonsillectomy Age 5 Family History Family History Father Bowel cancer Mother , Age 72 Lung cancer Sibling Lung cancer Social History Social History Social History: The patient continues to smoke about half a pack a cigarettes a day. She is legally disabled. Her son Mark Seaman is her emergency vacuum cleaner repair person. She continues to use marijuana but has not smoked in the last couple days due to her shortness of breath. She denies any alcohol use. Code status full code Smoking packs per day: 0.5 Smoking cigarettes per day: 10.0 Years smoked: 45 Smoking pack-years: 22.50 Smoking status
--- NOTE | 2022-11-06 12:55 | PM.CNNEP ---
Assessment and Plan Assessment and plan (1) GEORGETTE (acute kidney injury): Code(s): N17.9 - Acute kidney failure, unspecified Status: Acute Assessment and Plan: creatinine mildly elevated above baseline -- normally runs 0.94 - 1.18mg/dl does have a history of a solitary kidney (previous nephrectomy) fluctuations in creatinine due to fluid status (?) follow trend with diuresis (2) Anasarca: Code(s): R60.1 - Generalized edema Status: Inactive Assessment and Plan: as noted by admission imaging (bilateral pleural effusions, pericardial effusion, LE edema up to abdomen) IV diuresis as tolerated follow I/Os and exam (3) Hyponatremia: Code(s): E87.1 - Hypo-osmolality and hyponatremia Status: Acute Assessment and Plan: likely secondary to hypervolemia/fluid overload should improve with diuresis and fluid restriction (as already noted) follow trend of sodium (4) CHF exacerbation: Code(s): I50.9 - Heart failure, unspecified Status: Acute Assessment and Plan: Cardiology following follow I/Os Echo ordered fluid restriction (5) Pericardial effusion: Code(s): I31.39 - Other pericardial effusion (noninflammatory) Status: Acute Assessment and Plan: as noted by imaging Cardiology following (6) COPD (chronic obstructive pulmonary disease): Code(s): J44.9 - Chronic obstructive pulmonary disease, unspecified Status: Acute Assessment and Plan: on breathing treatments on nebs and steroids Will continue to follow. History of Present Illness Reason for Consult Consult date: 11/06/22 Chief Complaint Chief complaint: New onset CHF, Acute renal failure History of Present Illness Narrative: The patient is a 62-year-old female who is transferred from [facility] for further evaluation of fluid overload. According to the patient, for the last 3 weeks she has noticed increasing swelling and edema from her lower extremities up to her abdominal area in association with worsening shortness of breath and orthopnea. She reports she has to sleep in a recliner as if she lays flat, she has significant difficulties with breathing. The swelling and edema have got to the point where she has noticed weeping in her lower extremities and discomfort in her abdomen as well. She apparently went to see her primary care physician for further evaluation of this issue but in the office, her O2 saturations were 70% on room air and she was directed to the emergency room there for further evaluation. With application of 6 L of oxygen in the emergency room, her O2 sats were better but she normally does not wear oxygen at baseline. She does have known COPD but has no reported history of congestive heart failure as far as she is aware. Workup and evaluation at the [facility] demonstrated a positive D-dimer, chemistry significant for mild hypokalemia and elevated BUN and creatinine above her baseline, and elevated BNP, and an ABG with a pH of 7.45, pCO2 of 54.2, and PO2 of 57.3. Subsequent imaging included a CT scan of the chest, abdomen, and pelvis which demonstrated no pulmonary embolism, mild emphysema, mild bilateral pneumonia, and anasarca with pulmonary edema, pleural effusions, moderate size pericardial effusion, and small volume of ascites. Given these findings with regard to imaging studies and laboratory testing, she was transferred to [facility] for further evaluation and therapy. Since her admission, she has been receiving IV diuretic therapy and has been tolerating these interventions with subsequent improvement in her renal function/creatinine by labs done this morning. Cardiology has been consulted on the assumption that this represents a CHF exacerbation and she has no apparent history of this in the past. Renal consultation was requested due to her acute kidney injury/acute r
--- NOTE | 2022-11-06 14:17 | PM.IMPN ---
Progress Note: A&P Assessment and Plan (1) CHF exacerbation: Code(s): I50.9 - Heart failure, unspecified Status: Acute Assessment and Plan: Patient presented from her PCP office to the ED for evaluation of CHF exacerbation. Reviewed PCP office note, appears patient was hypoxic on presentation down to 81%. Initial CXR revealed airspace opacities of the lower lungs with mild pulmonary edema and CTA of the chest was reviewed which revealed pulmonary edema with small pleural effusions. Appreciate cardiology consultation Continue with IV Lasix 40 mg daily And fluid restriction diet. Monitor intake and output and daily weights. (2) Pericardial effusion: Code(s): I31.39 - Other pericardial effusion (noninflammatory) Status: Acute Assessment and Plan: Evident on CTA. may be related to history of rheumatoid arthritis versus abnormal TSH. Echocardiogram revealed moderate posterior pericardial effusion and small anterior effusion with no evidence of tamponade. Continue to monitor hemodynamic status. (3) COPD exacerbation: Code(s): J44.1 - Chronic obstructive pulmonary disease with (acute) exacerbation Status: Acute Assessment and Plan: Patient hypoxic on presentation with wheezing and productive cough with green sputum. Continue with IV Solu-Medrol, will decrease to 60 mg q.8 hours. Continue albuterol and Xopenex nebs q.6 hours. Will begin p.o. azithromycin given sputum changes. (4) Acute renal failure: Code(s): N17.9 - Acute kidney failure, unspecified Status: Inactive Assessment and Plan: Review of prior labs demonstrates baseline creatinine to be about 0.9. Patient does have history of renal cell carcinoma and is s/p nephrectomy. Creatinine elevated on presentation to 1.35 and patient is requiring diuresis. Appreciate nephrology consultation and recommendations. Reviewed her renal ultrasound which showed normal right kidney without evidence of hydronephrosis and known absent left kidney. creatinine with slight improvement to 1.2 today. Continue to monitor BMP daily (5) Hyponatremia: Code(s): E87.1 - Hypo-osmolality and hyponatremia Status: Acute Assessment and Plan: [place] to be secondary to hypervolemia. Sodium levels have improved following diuresis And fluid restriction. Sodium up to 136 today. (6) Anasarca: Code(s): R60.1 - Generalized edema Status: Inactive Assessment and Plan: evident on CTA which was reviewed. continue with diuresis. See plan as above (7) Rheumatoid arthritis with rheumatoid factor of multiple sites without organ or systems involvement: Code(s): M05.79 - Rheumatoid arthritis with rheumatoid factor of multiple sites without organ or systems involvement Status: Chronic Assessment and Plan: No acute issues, however could be contributing to pulmonary and pericardial issues. continue home hydroxychloroquine (8) Nicotine dependence, unspecified, uncomplicated: Code(s): F17.200 - Nicotine dependence, unspecified, uncomplicated Status: Acute Assessment and Plan: patient smokes a half a pack per day. She has been educated on smoking cessation. Continue to reinforce (9) Elevated d-dimer: Code(s): R79.89 - Other specified abnormal findings of blood chemistry Status: Acute Assessment and Plan: D-dimer elevated on admission. CTA of the chest was negative for pulmonary embolism and bilateral venous Dopplers negative for lower extremity DVT. (10) Abnormal TSH: Code(s): R79.89 - Other specified abnormal findings of blood chemistry Status: Acute Assessment and Plan: TSH is slightly elevated at 7.24, free T4 and total T3 pending. Suspect subclinical hypothyroidism. Will await T3/T4 results. Continue to monitor Subjective Date/time seen: 11/06/22 14:17 Interval history: date of ser
[2022-11-06 14:26] LABS: Free T4 Free Thyroxine Reflex 0.97 ng/dL (0.78-2.19)
[2022-11-06 15:17] LABS: Appearance Urine Clear (Clear); Bilirubin Urine Negative (Negative); Blood Urine Negative (Negative); Color Urine Yellow (Yellow); Glucose Urine UA Negative (Negative); Ketones Urine Negative (Negative); Leukocyte Esterase Ur Negative LEU/UL (NEGATIVE); Nitrate Urine Negative (Negative); Protein Urine Negative (Negative); Specific Grav Ur 1.015 (1.001-1.035); Urobilinogen Urine 0.2 mg/dL (<2.0)
[2022-11-06 15:38] LABS: Add Urine Microscopic? NO
[2022-11-06] MEDS: DOXYCYCLINE HYCLATE 100 MG TABLET PO (16:46)
[2022-11-06 17:14] LABS: Total Triiodothyronine (T3) 0.74 NG/ML (0.97-1.69)
[2022-11-06 20:56] LABS: Sodium Urine Random 93 meq/L
[2022-11-06] MEDS: traZODone HCL 50 MG TABLET 200 MG PO (20:57)
[2022-11-06] MEDS: QUEtiapine FUMARATE 100 MG TABLET PO (20:58)
[2022-11-06] MEDS: MIRTAZAPINE 15 MG TABLET 45 MG PO (20:58)
[2022-11-06 20:59] LABS: Creatinine Urine 16.2 mg/dL; Total Protein Urine Random 15 mg/dL; Ur Ttl Prot Creatinine Ratio 0.93 mg/mg (0-0.20); Urea Random Urine 334 MG/DL
[2022-11-06 21:03] LABS: Sodium Urine Random 91 meq/L
[2022-11-07] VITALS (21 sets, daily range): BP systolic 130–151; BP diastolic 60–87; PULSE 65–87; RESP 16–24; TEMP 35.9–36.7; O2SAT 94–100
[2022-11-07 05:09] LABS: Hematocrit 34.7 % (37.0-47.0); Hemoglobin 9.7 g/dL (12.0-15.0); Mean Corpuscular Hemoglobin 25.5 pg (26-34); Mean Corpuscular Volume 91.1 fl (80-100); Mean Platelet Volume 10.8 fl (7.4-10.4); Platelet Count Result 243 k/mm3 (150-375); Red Blood Count 3.81 M/mm3 (4.2-5.4); Red Cell Distribution Width 19.3 % (11.5-14.5); White Blood Count 9.5 K/mm3 (4.5-10.0)
[2022-11-07 05:28] LABS: Anion Gap 3 mmol/L (8-16); Blood Urea Nitrogen 35 mg/dL (7-17); Carbon Dioxide 39 mmol/L (22-30); Chloride 94 mmol/L (98-107); Estimated CRCL calculation 41 ml/min; Estimated Glomerular Filt Rate 50; Glucose 126 mg/dL (65-110); Potassium 3.9 mmol/L (3.4-5.0); Sodium 136 mmol/L (137-145)
[2022-11-07] MEDS: methylPREDNISolone SOD SUCC 125 MG VIAL 60 MG IV PUSH ×3 (06:05→21:51)
[2022-11-07] MEDS: ENOXAPARIN 40 MG/0.4 ML SYRINGE SUB-Q (08:03)
[2022-11-07] MEDS: FOLIC ACID 1 MG TABLET PO (08:03)
[2022-11-07] MEDS: METOPROLOL SUCCINATE EXT REL 50 MG TABCR PO (08:03)
[2022-11-07] MEDS: SERTRALINE HCL 50 MG TABLET 100 MG PO (08:04)
[2022-11-07] MEDS: DOXYCYCLINE HYCLATE 100 MG TABLET PO ×2 (08:05→21:07)
[2022-11-07] MEDS: HYDROXYCHLOROQUINE SULFATE 200 MG TABLET PO (08:05)
[2022-11-07] MEDS: FUROSEMIDE INJ 40 MG/4 ML VIAL IV PUSH (08:05)
--- NOTE | 2022-11-07 13:30 | PM.PNNEP ---
Progress Note: A&P Assessment and Plan (1) GEORGETTE (acute kidney injury): Code(s): N17.9 - Acute kidney failure, unspecified Status: Acute Assessment and Plan: relatively stable creatinine mildly elevated above baseline on admission -- normally runs 0.94 - 1.18mg/dl does have a history of a solitary kidney (previous nephrectomy) fluctuations in creatinine due to fluid status (?) follow trend with diuresis (2) Anasarca: Code(s): R60.1 - Generalized edema Status: Inactive Assessment and Plan: as noted by admission imaging (bilateral pleural effusions, pericardial effusion, LE edema up to abdomen) IV diuresis as tolerated follow I/Os and exam (3) Hyponatremia: Code(s): E87.1 - Hypo-osmolality and hyponatremia Status: Acute Assessment and Plan: improving likely secondary to hypervolemia/fluid overload should continue to improve with diuresis and fluid restriction follow trend of sodium (4) CHF exacerbation: Code(s): I50.9 - Heart failure, unspecified Status: Acute Assessment and Plan: Cardiology following follow I/Os Echo results noted fluid restriction (5) Pericardial effusion: Code(s): I31.39 - Other pericardial effusion (noninflammatory) Status: Acute Assessment and Plan: as noted by imaging Cardiology following (6) COPD (chronic obstructive pulmonary disease): Code(s): J44.9 - Chronic obstructive pulmonary disease, unspecified Status: Acute Assessment and Plan: on breathing treatments on nebs and steroids Will continue to follow. Subjective Date/time seen: 11/07/22 13:30 She appears to be tolerating diuresis with stability if not improvement in renal function; edema/swelling still present but has improved to some degree; no other acute issues/events overnight or earlier this morning; no apparent distress noted. Exam Narrative: General: WD/WN female in NAD Heart: normal S1 and S2; no rub Lungs: bibasilar crackles Abdomen: soft, nontender, nondistended, positive bowel sounds Extremities: no cyanosis or clubbing; 2+ edema Skin: serous drainage noted Objective Data Vital Signs Vital Signs: Vital Signs Temp Pulse Resp BP Pulse Ox O2 Del Method O2 Flow Rate 11/07/22 12:00 75 11/07/22 08:56 87 20 11/07/22 13:20 76 18 11/07/22 13:13 76 18 01/20/23 12:00 97.6 F 74 18 133/76 99 11/07/22 08:00 97.6 F 66 24 H 146/83 H 100 11/07/22 10:36 87 11/07/22 08:33 74 11/07/22 08:33 74 100 Nasal Cannula 2 11/07/22 08:09 74 11/07/22 08:03 70 11/07/22 04:00 73 11/07/22 04:00 94 Nasal Cannula 2 11/07/22 03:10 70 18 11/07/22 04:00 96.6 F L 73 18 130/72 98 11/06/22 19:49 77 18 11/06/22 19:39 75 18 11/07/22 03:00 72 18 11/07/22 00:00 94 Nasal Cannula 2 11/07/22 00:00 75 11/06/22 20:00 70 11/07/22 00:00 98.1 F 65 20 146/70 H 99 11/06/22 20:00 94 Nasal Cannula 2 11/06/22 20:00 98.4 F 74 18 146/68 H 100 11/06/22 19:41 100 Nasal Cannula 2 11/06/22 18:00 77 11/06/22 16:00 97.7 F 80 18 127/59 L 93 11/06/22 16:00 94 Nasal Cannula 2 11/06/22 16:00 77 11/06/22 15:31 81 20 Intake/Output Intake/Output: Intake & Output 11/04/22 11/05/22 11/06/22 11/07/22 23:59 23:59 23:59 23:59 Intake Total 1260 560 Output Total 3350 1300 Balance -3217 -181 Meds/Results Medications: Active Medications Generic Name Dose Route Start Last Admin Trade Name Freq PRN Reason Stop Dose Admin Acetaminophen 650 mg 11/05/22 19:33 Acetaminophen 325 Mg Tablet PO Q4H PRN Mild Pain (1-3) or Fever Doxycycline Hyclate 100 mg 11/06/22 14:50 11/07/22 08:05 Doxycycline Hyclate 100 Mg Tablet PO 100 mg Q12HR AMIE Admin
--- NOTE | 2022-11-07 13:30 | P.PNNP_ITS ---
Progress Note: A&P Assessment and Plan (1) GEORGETTE (acute kidney injury): Code(s): N17.9 - Acute kidney failure, unspecified Status: Acute Assessment and Plan: * relatively stable * creatinine mildly elevated above baseline on admission -- normally runs 0.94 - 1.18mg/dl * does have a history of a solitary kidney (previous nephrectomy) * fluctuations in creatinine due to fluid status (?) * follow trend with diuresis (2) Anasarca: Code(s): R60.1 - Generalized edema Status: Inactive Assessment and Plan: * as noted by admission imaging (bilateral pleural effusions, pericardial effusion, LE edema up to abdomen) * IV diuresis as tolerated * follow I/Os and exam (3) Hyponatremia: Code(s): E87.1 - Hypo-osmolality and hyponatremia Status: Acute Assessment and Plan: * improving * likely secondary to hypervolemia/fluid overload * should continue to improve with diuresis and fluid restriction * follow trend of sodium (4) CHF exacerbation: Code(s): I50.9 - Heart failure, unspecified Status: Acute Assessment and Plan: * Cardiology following * follow I/Os * Echo results noted * fluid restriction (5) Pericardial effusion: Code(s): I31.39 - Other pericardial effusion (noninflammatory) Status: Acute Assessment and Plan: * as noted by imaging * Cardiology following (6) COPD (chronic obstructive pulmonary disease): Code(s): J44.9 - Chronic obstructive pulmonary disease, unspecified Status: Acute Assessment and Plan: * on breathing treatments * on nebs and steroids Will continue to follow. Subjective Date/time seen: 11/07/22 13:30 She appears to be tolerating diuresis with stability if not improvement in renal function; edema/swelling still present but has improved to some degree; no other acute issues/events overnight or earlier this morning; no apparent distress noted. Exam Narrative: General: WD/WN female in NAD Heart: normal S1 and S2; no rub Lungs: bibasilar crackles Abdomen: soft, nontender, nondistended, positive bowel sounds Extremities: no cyanosis or clubbing; 2+ edema Skin: serous drainage noted Objective Data Vital Signs Vital Signs: Vital Signs Temp Pulse Resp BP Pulse Ox O2 Del Method O2 Flow Rate 11/07/22 12:00 75 11/07/22 08:56 87 20 01/20/23 13:20 76 18 11/07/22 13:13 76 18 11/07/22 12:00 97.6 F 74 18 133/76 99 11/07/22 08:00 97.6 F 66 24 H 146/83 H 100 11/07/22 10:36 87 11/07/22 08:33 74 11/07/22 08:33 74 100 Nasal Cannula 2 11/07/22 08:09 74 11/07/22 08:03 70 11/07/22 04:00 73 11/07/22 04:00 94 Nasal Cannula 2 11/07/22 03:10 70 18 11/07/22 04:00 96.6 F L 73 18 130/72 98 11/06/22 19:49 77 18 11/06/22 19:39 75 18 11/07/22 03:00 72 18 11/07/22 00:00 94 Nasal Cannula 2 11/07/22 00:00 75 11/06/22 20:00 70 11/07/22 00:00 98.1 F 65 20 146/70 H 99 11/06/22 20:00 94 Nasal Cannula 2 11/06/22 20:00 98.4 F 74 18 146/68 H 100 11/06/22 19:41 100 Nasal Cannula 2
--- NOTE | 2022-11-07 14:56 | PM.IMPN ---
Progress Note: A&P Assessment and Plan (1) CHF exacerbation: Code(s): I50.9 - Heart failure, unspecified Status: Acute Assessment and Plan: Patient presented from her PCP office to the ED for evaluation of CHF exacerbation. Reviewed PCP office note, appears patient was hypoxic on presentation down to 81%. Initial CXR revealed airspace opacities of the lower lungs with mild pulmonary edema and CTA of the chest was reviewed which revealed pulmonary edema with small pleural effusions. Appreciate cardiology consultation Continue with IV Lasix 40 mg daily and fluid restriction diet. Patient has negative 2.5 L fluid balance. Monitor intake and output and daily weights. (2) Pericardial effusion: Code(s): I31.39 - Other pericardial effusion (noninflammatory) Status: Acute Assessment and Plan: Evident on CTA. may be related to history of rheumatoid arthritis versus abnormal TSH. Echocardiogram revealed moderate posterior pericardial effusion and small anterior effusion with no evidence of tamponade. Continue to monitor hemodynamic status. Appreciate cardiology consultation (3) COPD exacerbation: Code(s): J44.1 - Chronic obstructive pulmonary disease with (acute) exacerbation Status: Acute Assessment and Plan: Patient hypoxic on presentation with wheezing and productive cough with green sputum. Continue with IV Solu-Medrol 60 mg q.8 hours. Continue albuterol and Xopenex nebs q.6 hours. Continue p.o. doxycycline given sputum changes (4) Acute renal failure: Code(s): N17.9 - Acute kidney failure, unspecified Status: Inactive Assessment and Plan: Review of prior labs demonstrates baseline creatinine to be about 0.9. Patient does have history of renal cell carcinoma and is s/p nephrectomy. Creatinine elevated on presentation to 1.35 and patient is requiring diuresis. Appreciate nephrology consultation and recommendations. Reviewed her renal ultrasound which showed normal right kidney without evidence of hydronephrosis and known absent left kidney. creatinine with continued improvement to 1.1 today. Continue to monitor BMP daily (5) Hyponatremia: Code(s): E87.1 - Hypo-osmolality and hyponatremia Status: Acute Assessment and Plan: [place] to be secondary to hypervolemia. Sodium levels have improved following diuresis and fluid restriction. Sodium 136 today. (6) Anasarca: Code(s): R60.1 - Generalized edema Status: Inactive Assessment and Plan: Evident on CTA which was reviewed. continue with diuresis. See plan as above (7) Rheumatoid arthritis with rheumatoid factor of multiple sites without organ or systems involvement: Code(s): M05.79 - Rheumatoid arthritis with rheumatoid factor of multiple sites without organ or systems involvement Status: Chronic Assessment and Plan: No acute issues, however could be contributing to pulmonary and pericardial issues. continue home hydroxychloroquine (8) Nicotine dependence, unspecified, uncomplicated: Code(s): F17.200 - Nicotine dependence, unspecified, uncomplicated Status: Acute Assessment and Plan: patient smokes a half a pack per day. Discussed smoking cessation for 5 minutes today. Patient is motivated to quit (9) Elevated d-dimer: Code(s): R79.89 - Other specified abnormal findings of blood chemistry Status: Acute Assessment and Plan: D-dimer elevated on admission. CTA of the chest was negative for pulmonary embolism and bilateral venous Dopplers negative for lower extremity DVT. (10) Abnormal TSH: Code(s): R79.89 - Other specified abnormal findings of blood chemistry Status: Acute Assessment and Plan: TSH is slightly elevated at 7.24, T4 is within normal limits and T3 is slightly decreased at 0.74. Consistent with subclinical hypothyroidism. Patient will need TSH with reflex
[2022-11-07] MEDS: MIRTAZAPINE 15 MG TABLET 45 MG PO (21:07)
[2022-11-07] MEDS: QUEtiapine FUMARATE 100 MG TABLET PO (21:07)
[2022-11-07] MEDS: DOCUSATE SODIUM 100 MG CAPSULE PO (21:07)
[2022-11-07] MEDS: traZODone HCL 50 MG TABLET 200 MG PO (21:08)
[2022-11-07] MEDS: SUMAtriptan SUCCINATE 25 MG TABLET 50 MG PO (21:53)
[2022-11-08] VITALS (22 sets, daily range): BP systolic 118–143; BP diastolic 60–79; PULSE 65–75; RESP 16–21; TEMP 36.2–36.9; O2SAT 91–100; BMI 22.3
[2022-11-08 04:56] LABS: Hematocrit 34.4 % (37.0-47.0); Hemoglobin 9.6 g/dL (12.0-15.0); Mean Corpuscular HGB Conc 27.9 g/dl (32-36); Mean Corpuscular Hemoglobin 25.1 pg (26-34); Mean Corpuscular Volume 90.1 fl (80-100); Mean Platelet Volume 10.4 fl (7.4-10.4); Platelet Count Result 263 k/mm3 (150-375); Red Blood Count 3.82 M/mm3 (4.2-5.4); Red Cell Distribution Width 18.8 % (11.5-14.5); White Blood Count 13.5 K/mm3 (4.5-10.0)
[2022-11-08 05:10] LABS: Anion Gap 3 mmol/L (8-16); Blood Urea Nitrogen 36 mg/dL (7-17); Calcium 8.8 mg/dL (8.4-10.2); Carbon Dioxide 38 mmol/L (22-30); Chloride 96 mmol/L (98-107); Estimated CRCL calculation 45 ml/min; Estimated Glomerular Filt Rate 56; Glucose 164 mg/dL (65-110); Potassium 3.9 mmol/L (3.4-5.0); Sodium 137 mmol/L (137-145)
[2022-11-08] MEDS: methylPREDNISolone SOD SUCC 125 MG VIAL 60 MG IV PUSH ×2 (05:28→17:49)
[2022-11-08] MEDS: DOCUSATE SODIUM 100 MG CAPSULE PO ×2 (08:57→20:01)
[2022-11-08] MEDS: FOLIC ACID 1 MG TABLET PO (08:58)
[2022-11-08] MEDS: DOXYCYCLINE HYCLATE 100 MG TABLET PO ×2 (08:58→20:01)
[2022-11-08] MEDS: SERTRALINE HCL 50 MG TABLET 100 MG PO (08:58)
[2022-11-08] MEDS: HYDROXYCHLOROQUINE SULFATE 200 MG TABLET PO (08:58)
[2022-11-08] MEDS: FUROSEMIDE INJ 40 MG/4 ML VIAL IV PUSH (08:59)
[2022-11-08] MEDS: ENOXAPARIN 40 MG/0.4 ML SYRINGE SUB-Q (08:59)
[2022-11-08] MEDS: METOPROLOL SUCCINATE EXT REL 50 MG TABCR PO (09:00)
[2022-11-08] MEDS: polyethylene glycoL 3350 17 GM POWD.PACK PO (09:00)
--- NOTE | 2022-11-08 12:49 | P.PNNP_ITS ---
Progress Note: A&P Assessment and Plan (1) GEORGETTE (acute kidney injury): Code(s): N17.9 - Acute kidney failure, unspecified Status: Acute Assessment and Plan: * relatively stable * creatinine mildly elevated above baseline on admission -- normally runs 0.94 - 1.18mg/dl * does have a history of a solitary kidney (previous nephrectomy) * fluctuations in creatinine due to fluid status (?) * follow trend with diuresis (2) Anasarca: Code(s): R60.1 - Generalized edema Status: Inactive Assessment and Plan: * as noted by admission imaging (bilateral pleural effusions, pericardial effusion, LE edema up to abdomen) * IV diuresis as tolerated * consider adding acetazolamide (rising CO2 level) * follow I/Os and exam (3) Hyponatremia: Code(s): E87.1 - Hypo-osmolality and hyponatremia Status: Acute Assessment and Plan: * improving * likely secondary to hypervolemia/fluid overload * should continue to improve with diuresis and fluid restriction * follow trend of sodium (4) CHF exacerbation: Code(s): I50.9 - Heart failure, unspecified Status: Acute Assessment and Plan: * Cardiology following * follow I/Os * Echo results noted * fluid restriction (5) Pericardial effusion: Code(s): I31.39 - Other pericardial effusion (noninflammatory) Status: Acute Assessment and Plan: * as noted by imaging * Cardiology following (6) COPD (chronic obstructive pulmonary disease): Code(s): J44.9 - Chronic obstructive pulmonary disease, unspecified Status: Acute Assessment and Plan: * on breathing treatments * on nebs and steroids Not much else to really add -- will continue to follow intermittently. Subjective Date/time seen: 11/08/22 12:49 Appears to be doing better but sill with a significant amount of swelling/edema although it seems to be improving with current interventions; no other acute issues or problems noted; no apparent distress voiced on my visit. Exam Narrative: General: WD/WN female in NAD Heart: normal S1 and S2; no rub Lungs: bibasilar crackles Abdomen: soft, nontender, nondistended, positive bowel sounds Extremities: no cyanosis or clubbing; 2+ edema Skin: serous drainage apparent Objective Data Vital Signs Vital Signs: Vital Signs Temp Pulse Resp BP Pulse Ox O2 Del Method O2 Flow Rate 11/08/22 12:07 97.6 F 71 21 H 132/67 98 11/08/22 12:00 68 97 Nasal Cannula 2 11/08/22 12:00 74 11/08/22 10:00 71 11/08/22 08:30 73 99 Nasal Cannula 3 11/08/22 08:30 73 11/08/22 09:00 69 11/08/22 08:41 69 16 11/08/22 08:27 66 18 11/08/22 08:27 93 Nasal Cannula 3 11/08/22 08:00 97.2 F L 68 20 129/74 95 11/08/22 05:17 73 11/08/22 03:24 69 20 91 Nasal Cannula 3 11/08/22 04:00 97.6 F 69 20 118/60 91 11/08/22 04:00 67 11/08/22 02:00 66 11/08/22 02:32 67 18 11/08/22 02:23 65 18 11/08/22 00:00 75 11/07/22 23:25 68 20 97 Nasal Cannula 3 11/07/22 23:16 97.8 F 68 20 137/60 97 11/07/22 22:00 72 11/07/22 20:00 76 11/07/22
--- NOTE | 2022-11-08 12:49 | PM.PNNEP ---
Progress Note: A&P Assessment and Plan (1) GEORGETTE (acute kidney injury): Code(s): N17.9 - Acute kidney failure, unspecified Status: Acute Assessment and Plan: relatively stable creatinine mildly elevated above baseline on admission -- normally runs 0.94 - 1.18mg/dl does have a history of a solitary kidney (previous nephrectomy) fluctuations in creatinine due to fluid status (?) follow trend with diuresis (2) Anasarca: Code(s): R60.1 - Generalized edema Status: Inactive Assessment and Plan: as noted by admission imaging (bilateral pleural effusions, pericardial effusion, LE edema up to abdomen) IV diuresis as tolerated consider adding acetazolamide (rising CO2 level) follow I/Os and exam (3) Hyponatremia: Code(s): E87.1 - Hypo-osmolality and hyponatremia Status: Acute Assessment and Plan: improving likely secondary to hypervolemia/fluid overload should continue to improve with diuresis and fluid restriction follow trend of sodium (4) CHF exacerbation: Code(s): I50.9 - Heart failure, unspecified Status: Acute Assessment and Plan: Cardiology following follow I/Os Echo results noted fluid restriction (5) Pericardial effusion: Code(s): I31.39 - Other pericardial effusion (noninflammatory) Status: Acute Assessment and Plan: as noted by imaging Cardiology following (6) COPD (chronic obstructive pulmonary disease): Code(s): J44.9 - Chronic obstructive pulmonary disease, unspecified Status: Acute Assessment and Plan: on breathing treatments on nebs and steroids Not much else to really add -- will continue to follow intermittently. Subjective Date/time seen: 11/08/22 12:49 Appears to be doing better but sill with a significant amount of swelling/edema although it seems to be improving with current interventions; no other acute issues or problems noted; no apparent distress voiced on my visit. Exam Narrative: General: WD/WN female in NAD Heart: normal S1 and S2; no rub Lungs: bibasilar crackles Abdomen: soft, nontender, nondistended, positive bowel sounds Extremities: no cyanosis or clubbing; 2+ edema Skin: serous drainage apparent Objective Data Vital Signs Vital Signs: Vital Signs Temp Pulse Resp BP Pulse Ox O2 Del Method O2 Flow Rate 11/08/22 12:07 97.6 F 71 21 H 132/67 98 11/08/22 12:00 68 97 Nasal Cannula 2 11/08/22 12:00 74 11/08/22 10:00 71 11/08/22 08:30 73 99 Nasal Cannula 3 11/08/22 08:30 73 11/08/22 09:00 69 11/08/22 08:41 69 16 11/08/22 08:27 66 18 11/08/22 08:27 93 Nasal Cannula 3 11/08/22 08:00 97.2 F L 68 20 129/74 95 11/08/22 05:17 73 11/08/22 03:24 69 20 91 Nasal Cannula 3 11/08/22 04:00 97.6 F 69 20 118/60 91 11/08/22 04:00 67 11/08/22 02:00 66 11/08/22 02:32 67 18 11/08/22 02:23 65 18 11/08/22 00:00 75 11/07/22 23:25 68 20 97 Nasal Cannula 3 11/07/22 23:16 97.8 F 68 20 137/60 97 11/07/22 22:00 72 11/07/22 20:00 76 11/07/22 20:00 75 16 97 Nasal Cannula 1 11/07/22 21:30 66 16 11/07/22 21:11 66 19 11/07/22 21:11 66 96 Nasal Cannula 2 11/07/22 20:00 97.6 F 75 16 151/87 H 97 Intake/Output Intake/Output: Intake & Output 11/05/22 11/06/22 11/07/22 11/08/22 23:59 23:59 23:59 23:59 Intake Total 1260 800 780 Output Total 3350 1450 3350 [id number] [id number] Meds/Results Medications: Active Medications Generic Name Dose Route Start Last Admin Trade Name Freq PRN Reason Stop Dose Admin Acetaminophen 650 mg 11/05/22 19:33 Acetaminophen 325 Mg Tablet PO Q4H PRN Mild Pain (1-3) or Fever Docusate Sodium 100 mg 11/07/22 21:00 11/08/22 08:57 Docusate Sodium 100 Mg Capsul
--- NOTE | 2022-11-08 13:57 | PM.IMPN ---
Progress Note: A&P Assessment and Plan (1) CHF exacerbation: Code(s): I50.9 - Heart failure, unspecified Status: Acute Assessment and Plan: Patient presented from her PCP office to the ED for evaluation of CHF exacerbation. Reviewed PCP office note, appears patient was hypoxic on presentation down to 81%. Initial CXR revealed airspace opacities of the lower lungs with mild pulmonary edema and CTA of the chest was reviewed which revealed pulmonary edema with small pleural effusions. Appreciate cardiology consultation. Patient has negative 3.5 L fluid balance and has had symptomatic improvement. Transition to p.o. Lasix 40 mg daily. Monitor intake and output and daily weights. (2) Pericardial effusion: Code(s): I31.39 - Other pericardial effusion (noninflammatory) Status: Acute Assessment and Plan: Evident on CTA. May be related to history of rheumatoid arthritis versus abnormal TSH. Echocardiogram revealed moderate posterior pericardial effusion and small anterior effusion with no evidence of tamponade. Continue to monitor hemodynamic status. Appreciate cardiology consultation (3) COPD exacerbation: Code(s): J44.1 - Chronic obstructive pulmonary disease with (acute) exacerbation Status: Acute Assessment and Plan: Patient hypoxic on presentation with wheezing and productive cough with green sputum. Wheezing resolved today. Continue with IV Solu-Medrol, weaned to 60 mg q.12 hours. Continue albuterol and Xopenex nebs q.6 hours. Continue p.o. doxycycline given sputum changes (4) Acute renal failure: Code(s): N17.9 - Acute kidney failure, unspecified Status: Inactive Assessment and Plan: Review of prior labs demonstrates baseline creatinine to be about 0.9. Patient does have history of renal cell carcinoma and is s/p nephrectomy. Creatinine elevated on presentation to 1.35 and patient is requiring diuresis. Appreciate nephrology consultation and recommendations. Reviewed her renal ultrasound which showed normal right kidney without evidence of hydronephrosis and known absent left kidney. creatinine with continued improvement to 1.0 today. Continue to monitor BMP daily (5) Hyponatremia: Code(s): E87.1 - Hypo-osmolality and hyponatremia Status: Acute Assessment and Plan: [place] to be secondary to hypervolemia. Sodium levels have improved following diuresis and fluid restriction. Sodium 137 today. (6) Anasarca: Code(s): R60.1 - Generalized edema Status: Inactive Assessment and Plan: Evident on CTA. continue with diuresis. See plan as above (7) Rheumatoid arthritis with rheumatoid factor of multiple sites without organ or systems involvement: Code(s): M05.79 - Rheumatoid arthritis with rheumatoid factor of multiple sites without organ or systems involvement Status: Chronic Assessment and Plan: No acute issues, however could be contributing to pulmonary and pericardial issues. continue home hydroxychloroquine (8) Nicotine dependence, unspecified, uncomplicated: Code(s): F17.200 - Nicotine dependence, unspecified, uncomplicated Status: Acute Assessment and Plan: Patient smokes a half a pack per day. Patient has been educated on smoking cessation and is motivated to quit smoking. (9) Elevated d-dimer: Code(s): R79.89 - Other specified abnormal findings of blood chemistry Status: Acute Assessment and Plan: D-dimer elevated on admission. CTA of the chest was negative for pulmonary embolism and bilateral venous Dopplers negative for lower extremity DVT. (10) Abnormal TSH: Code(s): R79.89 - Other specified abnormal findings of blood chemistry Status: Acute Assessment and Plan: TSH is slightly elevated at 7.24, T4 is within normal limits and T3 is slightly decreased at 0.74. Consistent with subclinical hypothyroidism.
--- NOTE | 2022-11-08 15:42 | PC.NURSE ---
pt med/surg status-report given to Shirley RN- pt move to room 259 via bed accompanied by staff- O2 on 2l/nc
--- NOTE | 2022-11-08 16:00 | PC.NURSE ---
pt transferred in to room 259 via bed, oriented to new room and environment, reviewed plan of care
[2022-11-08 18:59] LABS: Osmolality, Urine 359 mOsm/kg (50-1200)
[2022-11-08] MEDS: MIRTAZAPINE 15 MG TABLET 45 MG PO (20:01)
[2022-11-08] MEDS: QUEtiapine FUMARATE 100 MG TABLET PO (20:01)
[2022-11-08] MEDS: traZODone HCL 50 MG TABLET 200 MG PO (20:01)
[2022-11-09] VITALS (13 sets, daily range): BP systolic 115–161; BP diastolic 64–90; PULSE 61–75; RESP 16–20; TEMP 36–37.7; O2SAT 92–100
[2022-11-09] MEDS: methylPREDNISolone SOD SUCC 125 MG VIAL 60 MG IV PUSH ×2 (05:43→17:15)
[2022-11-09 05:47] LABS: Hematocrit 37.3 % (37.0-47.0); Hemoglobin 10.3 g/dL (12.0-15.0); Mean Corpuscular HGB Conc 27.6 g/dl (32-36); Mean Corpuscular Hemoglobin 25.6 pg (26-34); Mean Corpuscular Volume 92.8 fl (80-100); Mean Platelet Volume 10.6 fl (7.4-10.4); Platelet Count Result 277 k/mm3 (150-375); Red Blood Count 4.02 M/mm3 (4.2-5.4); Red Cell Distribution Width 18.6 % (11.5-14.5); White Blood Count 12.3 K/mm3 (4.5-10.0)
[2022-11-09 06:02] LABS: Blood Urea Nitrogen 39 mg/dL (7-17); Carbon Dioxide > 40 mmol/L (22-30); Chloride 94 mmol/L (98-107); Estimated CRCL calculation 41 ml/min; Estimated Glomerular Filt Rate 50; Glucose 92 mg/dL (65-110); Potassium 4.3 mmol/L (3.4-5.0); Sodium 139 mmol/L (137-145)
[2022-11-09] MEDS: DOCUSATE SODIUM 100 MG CAPSULE PO ×2 (08:29→20:04)
[2022-11-09] MEDS: METHOTREXATE 2.5 MG TAB (*CHEMO) 25 MG PO (08:29)
[2022-11-09] MEDS: FUROSEMIDE 40 MG TABLET PO (08:29)
[2022-11-09] MEDS: DOXYCYCLINE HYCLATE 100 MG TABLET PO ×2 (08:29→20:05)
[2022-11-09] MEDS: SERTRALINE HCL 50 MG TABLET 100 MG PO (08:29)
[2022-11-09] MEDS: HYDROXYCHLOROQUINE SULFATE 200 MG TABLET PO (08:29)
[2022-11-09] MEDS: FOLIC ACID 1 MG TABLET PO (08:29)
[2022-11-09] MEDS: METOPROLOL SUCCINATE EXT REL 50 MG TABCR PO (08:29)
[2022-11-09] MEDS: polyethylene glycoL 3350 17 GM POWD.PACK PO (08:30)
[2022-11-09] MEDS: ENOXAPARIN 40 MG/0.4 ML SYRINGE SUB-Q (08:30)
--- NOTE | 2022-11-09 15:21 | PM.IMPN ---
Progress Note: A&P Assessment and Plan (1) CHF exacerbation: Code(s): I50.9 - Heart failure, unspecified Status: Acute Assessment and Plan: Patient presented from her PCP office to the ED for evaluation of CHF exacerbation. Reviewed PCP office note, appears patient was hypoxic on presentation down to 81%. Initial CXR revealed airspace opacities of the lower lungs with mild pulmonary edema and CTA of the chest was reviewed which revealed pulmonary edema with small pleural effusions. Appreciate cardiology consultation. Patient has negative 4 L fluid balance and has had symptomatic improvement. Continue p.o. Lasix 40 mg daily. Monitor intake and output and daily weights. (2) Pericardial effusion: Code(s): I31.39 - Other pericardial effusion (noninflammatory) Status: Acute Assessment and Plan: Evident on CTA. May be related to history of rheumatoid arthritis versus abnormal TSH. Echocardiogram revealed moderate posterior pericardial effusion and small anterior effusion with no evidence of tamponade. Continue to monitor hemodynamic status. Appreciate cardiology consultation (3) COPD exacerbation: Code(s): J44.1 - Chronic obstructive pulmonary disease with (acute) exacerbation Status: Acute Assessment and Plan: Patient hypoxic on presentation with wheezing and productive cough with green sputum. Wheezing resolved. Continue with IV Solu-Medrol, weaned to 60 mg q.12 hours. plan to transition to p.o. prednisone tomorrow. Continue albuterol and Xopenex nebs q.6 hours. Continue p.o. doxycycline given sputum changes (4) Acute renal failure: Code(s): N17.9 - Acute kidney failure, unspecified Status: Inactive Assessment and Plan: Review of prior labs demonstrates baseline creatinine to be about 0.9. Patient does have history of renal cell carcinoma and is s/p nephrectomy. Creatinine elevated on presentation to 1.35 and patient is requiring diuresis. Appreciate nephrology consultation and recommendations. Reviewed her renal ultrasound which showed normal right kidney without evidence of hydronephrosis and known absent left kidney. Creatinine has returned back to baseline. Continue to monitor BMP daily (5) Hyponatremia: Code(s): E87.1 - Hypo-osmolality and hyponatremia Status: Acute Assessment and Plan: [place] to be secondary to hypervolemia. Sodium levels have improved following diuresis and fluid restriction. Sodium 139 today. (6) Anasarca: Code(s): R60.1 - Generalized edema Status: Inactive Assessment and Plan: Evident on CTA. continue with diuresis. See plan as above (7) Rheumatoid arthritis with rheumatoid factor of multiple sites without organ or systems involvement: Code(s): M05.79 - Rheumatoid arthritis with rheumatoid factor of multiple sites without organ or systems involvement Status: Chronic Assessment and Plan: No acute issues, however could be contributing to pulmonary and pericardial issues. continue home hydroxychloroquine (8) Nicotine dependence, unspecified, uncomplicated: Code(s): F17.200 - Nicotine dependence, unspecified, uncomplicated Status: Acute Assessment and Plan: Patient smokes a half a pack per day. Patient has been educated on smoking cessation and is motivated to quit smoking. (9) Elevated d-dimer: Code(s): R79.89 - Other specified abnormal findings of blood chemistry Status: Acute Assessment and Plan: D-dimer elevated on admission. CTA of the chest was negative for pulmonary embolism and bilateral venous Dopplers negative for lower extremity DVT. (10) Abnormal TSH: Code(s): R79.89 - Other specified abnormal findings of blood chemistry Status: Acute Assessment and Plan: TSH is slightly elevated at 7.24, T4 is within normal limits and T3 is slightly decreased at 0.74. Consistent with sub
[2022-11-09] MEDS: MIRTAZAPINE 15 MG TABLET 45 MG PO (20:04)
[2022-11-09] MEDS: QUEtiapine FUMARATE 100 MG TABLET PO (20:04)
[2022-11-09] MEDS: traZODone HCL 50 MG TABLET 200 MG PO (20:05)
[2022-11-10] VITALS (14 sets, daily range): BP systolic 114–152; BP diastolic 73–83; PULSE 66–78; RESP 16–20; TEMP 36.6–36.9; O2SAT 91–98
[2022-11-10 05:14] LABS: Hematocrit 34.7 % (37.0-47.0); Hemoglobin 9.6 g/dL (12.0-15.0); Mean Corpuscular HGB Conc 27.7 g/dl (32-36); Mean Corpuscular Hemoglobin 24.8 pg (26-34); Mean Corpuscular Volume 89.7 fl (80-100); Mean Platelet Volume 10.6 fl (7.4-10.4); Platelet Count Result 280 k/mm3 (150-375); Red Blood Count 3.87 M/mm3 (4.2-5.4); Red Cell Distribution Width 18.6 % (11.5-14.5); White Blood Count 10.1 K/mm3 (4.5-10.0)
[2022-11-10 05:25] LABS: Blood Urea Nitrogen 37 mg/dL (7-17); Calcium 8.5 mg/dL (8.4-10.2); Carbon Dioxide > 40 mmol/L (22-30); Chloride 95 mmol/L (98-107); Estimated CRCL calculation 45 ml/min; Estimated Glomerular Filt Rate 56; Glucose 85 mg/dL (65-110); Sodium 137 mmol/L (137-145)
[2022-11-10] MEDS: METOPROLOL SUCCINATE EXT REL 50 MG TABCR PO (08:32)
[2022-11-10] MEDS: FUROSEMIDE 40 MG TABLET PO (08:33)
[2022-11-10] MEDS: SERTRALINE HCL 50 MG TABLET 100 MG PO (08:33)
[2022-11-10] MEDS: DOXYCYCLINE HYCLATE 100 MG TABLET PO ×2 (08:33→20:18)
[2022-11-10] MEDS: HYDROXYCHLOROQUINE SULFATE 200 MG TABLET PO (08:34)
[2022-11-10] MEDS: polyethylene glycoL 3350 17 GM POWD.PACK PO (08:34)
[2022-11-10] MEDS: FOLIC ACID 1 MG TABLET PO (08:34)
[2022-11-10] MEDS: SUMAtriptan SUCCINATE 25 MG TABLET 50 MG PO (08:34)
[2022-11-10] MEDS: ENOXAPARIN 40 MG/0.4 ML SYRINGE SUB-Q (08:35)
[2022-11-10] MEDS: predniSONE 20 MG TABLET 40 MG PO (08:35)
[2022-11-10] MEDS: DOCUSATE SODIUM 100 MG CAPSULE PO ×2 (08:39→20:17)
[2022-11-10] MEDS: ALBUTEROL SULFATE (*SP) AEROSOL 1 PUFF 2 PUFF INHALATION ×2 (10:44→23:45)
--- NOTE | 2022-11-10 16:22 | PM.IMPN ---
Progress Note: A&P Assessment and Plan (1) CHF exacerbation: Code(s): I50.9 - Heart failure, unspecified Status: Acute Assessment and Plan: Patient presented from her PCP office to the ED for evaluation of CHF exacerbation. Reviewed PCP office note, appears patient was hypoxic on presentation down to 81%. Initial CXR revealed airspace opacities of the lower lungs with mild pulmonary edema and CTA of the chest was reviewed which revealed pulmonary edema with small pleural effusions. Appreciate cardiology consultation. Patient has negative 4.5 L fluid balance and has had symptomatic improvement. Continue p.o. Lasix 40 mg daily. Monitor intake and output and daily weights. (2) Pericardial effusion: Code(s): I31.39 - Other pericardial effusion (noninflammatory) Status: Acute Assessment and Plan: Evident on CTA. May be related to history of rheumatoid arthritis versus abnormal TSH. Echocardiogram revealed moderate posterior pericardial effusion and small anterior effusion with no evidence of tamponade. Continue to monitor hemodynamic status. Appreciate cardiology consultation (3) COPD exacerbation: Code(s): J44.1 - Chronic obstructive pulmonary disease with (acute) exacerbation Status: Acute Assessment and Plan: Patient hypoxic on presentation with wheezing and productive cough with green sputum. Wheezing resolved. Solu-Medrol was weaned and she is now on p.o. prednisone 40 mg daily which she will continue. Continue albuterol and Xopenex nebs q.6 hours. Continue p.o. doxycycline given sputum changes (4) Acute renal failure: Code(s): N17.9 - Acute kidney failure, unspecified Status: Inactive Assessment and Plan: Review of prior labs demonstrates baseline creatinine to be about 0.9. Patient does have history of renal cell carcinoma and is s/p nephrectomy. Creatinine elevated on presentation to 1.35 and patient is requiring diuresis. Appreciate nephrology consultation and recommendations. Reviewed her renal ultrasound which showed normal right kidney without evidence of hydronephrosis and known absent left kidney. Creatinine has returned back to baseline. Continue to monitor BMP daily (5) Hyponatremia: Code(s): E87.1 - Hypo-osmolality and hyponatremia Status: Acute Assessment and Plan: [place] to be secondary to hypervolemia. Sodium levels have improved following diuresis and fluid restriction. Sodium 137 today. (6) Anasarca: Code(s): R60.1 - Generalized edema Status: Inactive Assessment and Plan: Evident on CTA. continue with diuresis. See plan as above (7) Rheumatoid arthritis with rheumatoid factor of multiple sites without organ or systems involvement: Code(s): M05.79 - Rheumatoid arthritis with rheumatoid factor of multiple sites without organ or systems involvement Status: Chronic Assessment and Plan: No acute issues, however could be contributing to pulmonary and pericardial issues. continue home hydroxychloroquine (8) Nicotine dependence, unspecified, uncomplicated: Code(s): F17.200 - Nicotine dependence, unspecified, uncomplicated Status: Acute Assessment and Plan: Patient smokes a half a pack per day. Patient has been educated on smoking cessation and is motivated to quit smoking. (9) Elevated d-dimer: Code(s): R79.89 - Other specified abnormal findings of blood chemistry Status: Acute Assessment and Plan: D-dimer elevated on admission. CTA of the chest was negative for pulmonary embolism and bilateral venous Dopplers negative for lower extremity DVT. (10) Abnormal TSH: Code(s): R79.89 - Other specified abnormal findings of blood chemistry Status: Acute Assessment and Plan: TSH is slightly elevated at 7.24, T4 is within normal limits and T3 is slightly decreased at 0.74. Consistent with subclinical h
[2022-11-10] MEDS: traZODone HCL 50 MG TABLET 200 MG PO (20:18)
[2022-11-10] MEDS: MIRTAZAPINE 15 MG TABLET 45 MG PO (20:18)
[2022-11-10] MEDS: QUEtiapine FUMARATE 100 MG TABLET PO (20:18)
[2022-11-11] VITALS (14 sets, daily range): BP systolic 126–174; BP diastolic 63–87; PULSE 65–82; RESP 11–21; TEMP 36.7–37.1; O2SAT 86–100
[2022-11-11 05:39] LABS: Hematocrit 36.7 % (37.0-47.0); Hemoglobin 10.2 g/dL (12.0-15.0); Mean Corpuscular HGB Conc 27.8 g/dl (32-36); Mean Corpuscular Hemoglobin 25.3 pg (26-34); Mean Corpuscular Volume 91.1 fl (80-100); Mean Platelet Volume 10.2 fl (7.4-10.4); Platelet Count Result 271 k/mm3 (150-375); Red Blood Count 4.03 M/mm3 (4.2-5.4); Red Cell Distribution Width 18.7 % (11.5-14.5); White Blood Count 8.9 K/mm3 (4.5-10.0)
[2022-11-11 05:47] LABS: Anion Gap -1 mmol/L (8-16); Blood Urea Nitrogen 33 mg/dL (7-17); Calcium 8.7 mg/dL (8.4-10.2); Carbon Dioxide 38 mmol/L (22-30); Chloride 93 mmol/L (98-107); Estimated CRCL calculation 49 ml/min; Estimated Glomerular Filt Rate > 60; Glucose 81 mg/dL (65-110); Potassium 4.3 mmol/L (3.4-5.0); Sodium 130 mmol/L (137-145)
[2022-11-11] MEDS: DOCUSATE SODIUM 100 MG CAPSULE PO (08:58)
[2022-11-11] MEDS: predniSONE 20 MG TABLET 40 MG PO (08:58)
[2022-11-11] MEDS: ENOXAPARIN 40 MG/0.4 ML SYRINGE SUB-Q (08:59)
[2022-11-11] MEDS: FOLIC ACID 1 MG TABLET PO (08:59)
[2022-11-11] MEDS: FUROSEMIDE 40 MG TABLET PO (08:59)
[2022-11-11] MEDS: DOXYCYCLINE HYCLATE 100 MG TABLET PO (08:59)
[2022-11-11] MEDS: METOPROLOL SUCCINATE EXT REL 50 MG TABCR PO (09:00)
[2022-11-11] MEDS: HYDROXYCHLOROQUINE SULFATE 200 MG TABLET PO (09:00)
[2022-11-11] MEDS: SERTRALINE HCL 50 MG TABLET 100 MG PO (09:01)
[2022-11-11] MEDS: ALBUTEROL SULFATE (*SP) AEROSOL 1 PUFF 2 PUFF INHALATION (12:25)
--- NOTE | 2022-11-11 13:20 | HOMEO2EVAL ---
Evaluation was performed at [facility] Home Oxygen Evaluation RC: Home Oxygen (O2) Evaluation Start: 11/11/22 08:19 Freq: ONCE Status: Active Protocol: RPE Activity Type Activity Date Activity User E-sign Co-sign Detail Recorded Client Recorded Date Recorded By Document 11/11/22 11:00 [email or web address] 11/11/22 13:20 PKH Document 11/11/22 11:05 [email or web address] 11/11/22 13:20 PKH Document 11/11/22 11:10 [email or web address] [email or web address] 11/11/22 13:20 PKH Document 11/11/22 11:20 [email or web address] [email or web address] 11/11/22 13:20 PKH Document 11/11/22 11:40 [email or web address] [email or web address] 11/11/22 13:20 PKH Document 11/11/22 11:45 PK [email or web address] 11/11/22 13:20 PKH 11/11/22 11/11/22 11/11/22 11:00 11:05 11:10 Home O2 Evaluation [Oxygen] -Test Phase Resting Resting Resting -Oxygen Delivery Room Air Nasal Cannula Nasal Cannula -Oxygen Flow Rate (L/min) 1 2 [Pulse Oximetry] -Pulse Oximetry (90-100 %) 87 L 86 L 90 [Pulse Rate] -Pulse Rate (60-100 beats/min) 70 71 71 [Evaluation] -Activity Tolerance Good [Comments] -Home Oxygen Evaluation Comments [Charges] -Treatment Charges O2 Evaluation - Inpatient 11/11/22 11/11/22 11/11/22 11:20 11:40 11:45 Home O2 Evaluation [Oxygen] -Test Phase Exercise Exercise Resting -Oxygen Delivery Nasal Cannula Nasal Cannula -Oxygen Flow Rate (L/min) 2 3 2 [Pulse Oximetry] -Pulse Oximetry (90-100 %) 87 L 92 92 [Pulse Rate] -Pulse Rate (60-100 beats/min) 82 73 71 [Evaluation] -Activity Tolerance [Comments] -Home Oxygen Evaluation Comments Patient requires 2lpm with rest and 3lpm with activity. RN notified [Charges] -Treatment Charges
--- NOTE | 2022-11-11 13:29 | PCRCNOTE ---
Home O@ eval complete. Patient requires 2lpm with rest and 3lpm with activity. RN notified. Patient set up with Blaine Pricea) [phone]
--- NOTE | 2022-11-11 15:36 | PM.DS ---
DS: Admitting Diagnosis Discharge Date 11/11/2022 Admitting Diagnosis Acute respiratory failure DS: Discharge Diagnosis Discharge Diagnosis (1) CHF exacerbation: Code(s): I50.9 - Heart failure, unspecified Status: Acute Assessment and Plan: Patient presented from her PCP office to the ED for evaluation of CHF exacerbation. Reviewed PCP office note, appears patient was hypoxic on presentation down to 81%. Initial CXR revealed airspace opacities of the lower lungs with mild pulmonary edema and CTA of the chest was reviewed which revealed pulmonary edema with small pleural effusions. She was seen in consultation by cardiology and had symptomatic improvement following IV diuresis. She was transitioned back to Lasix 40 mg daily and will follow-up with cardiology as an outpatient. CHF education provided and discussed at length (2) Pericardial effusion: Code(s): I31.39 - Other pericardial effusion (noninflammatory) Status: Acute Assessment and Plan: Evident on CTA. May be related to history of rheumatoid arthritis versus abnormal TSH. Echocardiogram revealed moderate posterior pericardial effusion and small anterior effusion with no evidence of tamponade. Patient remained hemodynamically stable. Follow-up with cardiology as an outpatient (3) COPD exacerbation: Code(s): J44.1 - Chronic obstructive pulmonary disease with (acute) exacerbation Status: Acute Assessment and Plan: Patient hypoxic on presentation with wheezing and productive cough with green sputum. Wheezing resolved. Patient received IV Solu-Medrol which was weaned and she was transition to p.o. prednisone 40 mg daily. She will continue this as an outpatient to complete 5 days total. Continue home inhalers. She may benefit from outpatient pulmonology referral, however will defer to PCP. Home O2 eval completed on day of discharge. Patient requires 2 L of supplemental oxygen with rest and 3 L with activity. (4) Pneumonia: Code(s): J18.9 - Pneumonia, unspecified organism Status: Acute Assessment and Plan: Imaging demonstrated mild bilateral pneumonia. Sputum culture with growth of strep pneumo. Patient was treated with doxycycline. Supportive care provided. (5) Acute renal failure: Code(s): N17.9 - Acute kidney failure, unspecified Status: Inactive Assessment and Plan: Review of prior labs demonstrates baseline creatinine to be about 0.9. Patient does have history of renal cell carcinoma and is s/p nephrectomy. Creatinine elevated on presentation to 1.35. She was seen in consultation by Nephrology. Renal ultrasound showed normal right kidney with no evidence of hydronephrosis and known absent left kidney. Creatinine returned to baseline. (6) Hyponatremia: Code(s): E87.1 - Hypo-osmolality and hyponatremia Status: Acute Assessment and Plan: [place] to be secondary to hypervolemia. Sodium levels improved following diuresis and fluid restriction. Patient should continue with fluid restriction diet at home. Sodium levels remained stable (7) Anasarca: Code(s): R60.1 - Generalized edema Status: Inactive Assessment and Plan: Evident on CTA. Patient was appropriately diuresed (8) Rheumatoid arthritis with rheumatoid factor of multiple sites without organ or systems involvement: Code(s): M05.79 - Rheumatoid arthritis with rheumatoid factor of multiple sites without organ or systems involvement Status: Chronic Assessment and Plan: No acute issues, however could be contributing to pulmonary and pericardial issues. continue home hydroxychloroquine and methotrexate (9) Nicotine dependence, unspecified, uncomplicated: Code(s): F17.200 - Nicotine dependence, unspecified, uncomplicated Status: Acute Assessment and Plan: Patient smokes a half a pack per day. Patient was educated on smo
== END 2022-11-11 16:16 | disposition home or self-care (01) | DRG 291 ==
LOC: ANHIMU 11-06 13:14 → ANH2MED 11-08 15:41
PROVIDERS: Internal Medicine Nephrology; Nurse Practitioner; Admitting Provider Family Medicine; PCP Family Medicine; Visit Provider Physician Assistant
DX: I11.0 Hypertensive heart disease with heart failure (principal); I50.33 Acute on chronic diastolic (congestive) heart failure; J18.9 Pneumonia, unspecified organism; E87.1 Hypo-osmolality and hyponatremia; N17.9 Acute kidney failure, unspecified; I31.39 Other pericardial effusion (noninflammatory); J44.1 Chronic obstructive pulmonary disease with (acute) exacerbation; J44.0 Chronic obstructive pulmonary disease with (acute) lower respiratory infection; I27.20 Pulmonary hypertension, unspecified; M05.79 Rheumatoid arthritis with rheumatoid factor of multiple sites without organ or systems involvement; R60.1 Generalized edema; R79.1 Abnormal coagulation profile; R79.89 Other specified abnormal findings of blood chemistry; F41.9 Anxiety disorder, unspecified; F32.A Depression, unspecified; F12.90 Cannabis use, unspecified, uncomplicated; F17.210 Nicotine dependence, cigarettes, uncomplicated; Z90.5 Acquired absence of kidney; Z85.528 Personal history of other malignant neoplasm of kidney; Z87.11 Personal history of peptic ulcer disease
CPT/HCPCS: 36415; 71275; 74177; 76775; 80048; 80053; 81003; 81050; 82570; 83605; 83735; 83935; 84156; 84300; 84439; 84443; 84480; 84540; 85025; 85027; 87070; 87147; 87181; 87186; 87205; 93306; 93970; 94618; 94640; A9270; J1650; J1940; J2930; J7512; Q9967